=== PATIENT | female | born 1960 | race Caucasian/White ===

== ENCOUNTER 2019-07-14 08:43 | Inpatient (IN) ==
--- NOTE | 2019-07-05 19:28 | PAT Medication Instructions ---
Medication Instructions Date of Service July 05, 2019 Home Medications albuterol sulfate 2 puff INHALATION Q6H PRN aspirin [Aspirin Low Dose] 81 mg PO QAM atorvastatin 40 mg PO HS cholecalciferol (vitamin D3) [Vitamin D3] 5,000 unit PO QAM dicyclomine 10 mg PO TID PRN docusate sodium [Stool Softener] 100 mg PO BID furosemide 20 mg PO QAM gabapentin 100 mg PO TID hydroxychloroquine [Plaquenil] 200 mg PO BID insulin asp prt-insulin aspart [Novolog Mix 70-30FlexPen U-100] 10 unit SUBCUT DAILY PRN metformin 1,000 mg PO BID bdnrx-3i-goe-epa-fish oil [[place]-3 Fish Oil] 1 cap PO QAM omeprazole 40 mg PO DAILY PRN zonisamide 400 mg PO HS ASK your prescriber and surgeon hydroxychloroquine [Plaquenil] 200 mg PO BID STOP taking 2 weeks before surgery (or as soon as possible if surgery is within 2 weeks) uugmz-5b-ysv-epa-fish oil [[place]-3 Fish Oil] 1 cap PO QAM DO NOT take the morning of surgery cholecalciferol (vitamin D3) [Vitamin D3] 5,000 unit PO QAM dicyclomine 10 mg PO TID PRN docusate sodium [Stool Softener] 100 mg PO BID furosemide 20 mg PO QAM insulin asp prt-insulin aspart [Novolog Mix 70-30FlexPen U-100] 10 unit SUBCUT DAILY PRN metformin 1,000 mg PO BID Take morning of surgery With a small sip of water, OTHERWISE NOTHING TO EAT OR DRINK AFTER MIDNIGHT: albuterol sulfate 2 puff INHALATION Q6H PRN (use if needed; please bring with you to hospital day of surgery if possible) aspirin [Aspirin Low Dose] 81 mg PO QAM gabapentin 100 mg PO TID omeprazole 40 mg PO DAILY PRN (if needed) Take evening before surgery albuterol sulfate 2 puff INHALATION Q6H PRN (if needed) atorvastatin 40 mg PO HS dicyclomine 10 mg PO TID PRN (if needed) docusate sodium [Stool Softener] 100 mg PO BID gabapentin 100 mg PO TID insulin asp prt-insulin aspart [Novolog Mix 70-30FlexPen U-100] 10 unit SUBCUT DAILY PRN (if needed) metformin 1,000 mg PO BID omeprazole 40 mg PO DAILY PRN (if needed) zonisamide 400 mg PO HS Other Notes If you have any questions please call us at [phone] or [phone] or [phone] or [phone]
--- NOTE | 2019-07-06 08:17 | History & Physical Report ---
Date of Service July 06, 2019 date of surgery: 07-14-19 Assessment & Plan (1) Tricompartment osteoarthritis of right knee: Risks and benefits of procedure discussed in detail today, patient would like to proceed with a Right total knee replacement at [facility] as scheduled. will obtain medical clearance from Dr Youssef prior to surgery as well as obtain PATs at [facility]. Will place on ASA 81mg po bid x 1 month post op, f/u 2 weeks post op for routine post-operative care and x-ray, sooner if having any problems. will make arrangements for HHPT at the time of discharge. At this point in time, has failed conservative measures and would like to proceed with surgical intervention. History of Present Illness Chief Complaint: right knee pain Primary Care Provider: Jennifer Youssef Ms Mckenzie is a 59 year old female who complains of right knee pain, presents for pre-op evaluation prior to a right total knee replacement at [facility]. She presents with pain, swelling, stiffness and instability in the right knee. She states that the symptoms have been chronic non-traumatic and the symptoms occur constantly with intermittent worsening. Currently the patient states that the symptoms are moderate-severe. The pain is described as aching and sharp. The patient is experiencing pain in the entire knee joint, worse anterior and medially.She rates her current pain as 8/10. The symptoms are aggravated by first steps while awake, walking and stairs. Minna states that the symptoms are relieved by no specific activity. In addition to knee pain, she is also experiencing decreased mobility, difficulty bending and stiffness. Patient is using a cane for ambulation. Patient is taking Tylenol for pain as needed. Patient has had bilateral visco and cortisone injections in the past by her PCP. Her last visco injections were given by her PCP 07/2018. Patient has had previous therapy. Allergies Allergy/AdvReac Type Severity Reaction Status Date / Time No Known Allergies Allergy Verified 06/30/19 13:46 Home Medications Home Medications Medication Instructions Recorded Confirmed Type albuterol sulfate 2 puff INHALATION Q6H PRN 06/30/19 06/30/19 History aspirin [Aspirin Low Dose] 81 mg PO QAM 06/30/19 06/30/19 History atorvastatin 40 mg PO HS 06/30/19 06/30/19 History cholecalciferol (vitamin D3) 5,000 unit PO QAM 06/30/19 06/30/19 History [Vitamin D3] dicyclomine 10 mg PO TID PRN 06/30/19 06/30/19 History docusate sodium [Stool Softener] 100 mg PO BID 06/30/19 06/30/19 History furosemide 20 mg PO QAM 06/30/19 06/30/19 History gabapentin 100 mg PO TID 06/30/19 06/30/19 History hydroxychloroquine [Plaquenil] 200 mg PO BID 06/30/19 06/30/19 History insulin asp prt-insulin aspart 10 unit SUBCUT DAILY PRN 06/30/19 06/30/19 History [Novolog Mix 70-30FlexPen U-100] metformin 1,000 mg PO BID 06/30/19 06/30/19 History ajeeo-1x-zmw-epa-fish oil [[place]-3 1 cap PO QAM 06/30/19 06/30/19 History Fish Oil] omeprazole 40 mg PO DAILY PRN 06/30/19 06/30/19 History zonisamide 400 mg PO HS 06/30/19 06/30/19 History Past Med/Surg History Medical History Carpal tunnel syndrome of right wrist DDD (degenerative disc disease), lumbar Diabetes mellitus, type 2 Diabetic neuropathy DESCRIBES BANDS ON ANKLES AND FEET. ALSO DESCRIBES NUMBNESS AND TINGLING IN FEET. HAS DIFFICULTY WALKING; DENIES FALLING Fibromyalgia GERD (gastroesophageal reflux disease) Hiatal hernia History of Holter monitoring 2017 - [place] [facility] History of stroke 2017 - SEEN AT [facility]. INITIALLY HAD DIFFICULTY WRITINF, AFFECTED SPEECH AND SMELL. CURRENTLY RESIDUAL EFFECT IS OCCASSIONAL DIFFICULTY FINDING RIGHT WORD TO DESCRIBE SOMETHING Osteoarthritis Plantar fasciitis RIGHT AND LEFT FOOT Rheumatoid arthritis Sleep apnea USES CPAP Surgical History History of colonoscopy History of surgery LEFT HEEL Hx of cardiac cath 2005; NEGATIVE STUDY; Hx of section X1 Hx of cholecystectomy Family History Brother Family history of diabetes mellitus Grandfather (Maternal) Family history of diabetes mellitus Grandfather (Paternal) No problems noted. Uncle Family hx of colon cancer Uncle Family hx of colon cancer Social History Preferred Language: Citizen Of [place] Communication Ability: Effective Beliefs That Will Affect Care: None Current Living Situation: Family Current Living Situation Comment: DAUGHTER LIVES WITH PT Feels Safe at Home: Yes Smoking Status: Never smoker Do You Dip or Chew Tobacco: No ; Second Hand Exposure: No ; Hx Alcohol Use: No Hx Substance Use: No Review of Systems Review of Systems: All systems reviewed & are unremarkable except as noted in HPI & below Constitutional: no fever, no chills and no sweats Respiratory: no cough and no dyspnea Cardiovascular: no chest pain, no dyspnea and no orthopnea Gastrointestinal: no abdominal pain, no nausea and no vomiting Musculoskeletal: as per Subjective / HPI Physical Exam Physical Exam: Ht: 5ft 5in Wt: 133.8kg BP: 133/84 Pulse: 88 Constitutional: WD/WN, vitals as above no acute distress Respiratory: normal respiratory effort, lungs clear to auscultation no respiratory distress, no labored breathing and does not use accessory muscles Cardiovascular: RRR, no murmur, no edema Gastrointestinal (Abdomen): normal bowel sounds, soft, nontender, no hepatosplenomegaly Musculoskeletal: Right Knee: she ambulates with a limp and using a cane, there is no erythema, warmth noted, +1 effusion, greatest tenderness over the medial joint line and anterior knee joint. negative patellar apprehension , mild crepitation with motion, kody's negative, posterior drawer negative. positive mcmurrays medially, negative anterior drawer, knee stable with valgus/varus stress. no extensor lag. pain with active range of motion, AROM 0/5/110, Passive ROM 0/3/115. No pain with active/passive ROM of ankle. Lower Extremity Strength normal. Lower Extremity Neuro-vascular is normal Results & Data Diagnostic Findings right knee x-rays showing complete loss joint space medial compartment with overall varus alignment, there is also narrowing of the lateral compartment and patellofemoral joint. there is osteophyte formation, subchondral sclerosis noted, no loose bodies, no acute bony pathology. overall impression tricompartme ntal degenerative changes to the right knee.
--- NOTE | 2019-07-06 10:44 | Anesthesiology Consultation ---
Date of Service July 06, 2019 Assessment & Plan (1) Encounter for pre-operative examination: - PCP: 06/25/19: Episode epistaxis 05/2019 resolved (no definitive etiology)- advised to use humidifier HS/saline nasal spray during allergy season. Sleep apnea, COPD/asthma, diabetes "moderately well controlled." "As long as [preop testing] return as expected, and surgeon and anesthesiologist at in agreement, patient is medically cleared for R total knee replacement." - Check BSG AM DOS Chart Review Chart Review: Pending: Refer to Additional Notes / Consult section (pending preop testing (labs, EKG, CXR)) and Patient seen in Pre Admission Testing Teaching & Discussion Pre-Anesthesia Teaching/Discussion Notes: Instructed NPO after midnight before surgery,except medications with 15 cc of water. Medication instructions provided according to the PAT guidelines. History Surgery Operation Date: 07/14/19 08:45 Proposed Procedures p Right Total Knee Arthroplasty - Randy Verma DO Height/Weight Height: 5 ft 5 in Weight: 136.6 kg Allergies Allergy/AdvReac Type Severity Reaction Status Date / Time No Known Allergies Allergy Verified 06/30/19 13:46 Medications Home Medications Medication Instructions Recorded Confirmed Last Taken albuterol sulfate 2 puff INHALATION Q6H PRN 06/30/19 06/30/19 Unknown aspirin [Aspirin Low Dose] 81 mg PO QAM 06/30/19 06/30/19 Unknown atorvastatin 40 mg PO HS 06/30/19 06/30/19 Unknown cholecalciferol (vitamin D3) 5,000 unit PO QAM 06/30/19 06/30/19 Unknown [Vitamin D3] dicyclomine 10 mg PO TID PRN 06/30/19 06/30/19 Unknown docusate sodium [Stool Softener] 100 mg PO BID 06/30/19 06/30/19 Unknown furosemide 20 mg PO QAM 06/30/19 06/30/19 Unknown gabapentin 100 mg PO TID 06/30/19 06/30/19 Unknown hydroxychloroquine [Plaquenil] 200 mg PO BID 06/30/19 06/30/19 Unknown insulin asp prt-insulin aspart 10 unit SUBCUT DAILY PRN 06/30/19 06/30/19 Unknown [Novolog Mix 70-30FlexPen U-100] metformin 1,000 mg PO BID 06/30/19 06/30/19 Unknown biwno-8a-dng-epa-fish oil [[place]-3 1 cap PO QAM 06/30/19 06/30/19 Unknown Fish Oil] omeprazole 40 mg PO DAILY PRN 06/30/19 06/30/19 Unknown zonisamide 400 mg PO HS 06/30/19 06/30/19 Unknown Past Medical History Medical History Carpal tunnel syndrome of right wrist DDD (degenerative disc disease), lumbar Diabetes mellitus, type 2 IDDM Diabetic neuropathy ankles, feet- results in difficulty with ambulation Fibromyalgia GERD (gastroesophageal reflux disease) controlled Hiatal hernia History of blood transfusion s/p childbirth History of stroke 12/2017- residual difficulty with work findings Morbid obesity Osteoarthritis Plantar fasciitis B/L Pulmonary HTN RSVP cannot be properly estimated because of inadequate TR spectral doppler profile but probably greater than 60mmhg* per 12/2017 ECHO Rheumatoid arthritis Sleep apnea CPAP Exercise / Class Metabolic Activity III < 4 Walking/Shop/Light housework Past Family History Family History Brother Family history of diabetes mellitus Grandfather (Maternal) Family history of diabetes mellitus Grandfather (Paternal) No problems noted. Uncle Family hx of colon cancer Uncle Family hx of colon cancer Past Surgical History Surgical History History of colonoscopy History of surgery LEFT HEEL Hx of cardiac cath 2006= NO STENTS Hx of section X1 Hx of cholecystectomy Past Anesthesia History No Hx of Anesthesia Complications Brother: "awareness" with recent lung procedure and needed to be "put out a gain." No similar issues with other surgeries/anesthesia. History of PONV No Hx of PONV and No Hx of Motion Sickness Social History Smoking Status: Never smoker Do You Dip or Chew Tobacco: No Hx Alcohol Use: No Hx Substance Use: No Review of Systems Reflux controlled. Patient denies chest pain, shortness of breath, cough, wheezing, palpitations. Physical Exam Vital Signs VITALS BP 123/76 P 71 TEMP 97.6 SP02 96%RA RESP 18 PHYSICAL Full neck and c-spine range of motion. Full TMJ range of motion. TMD 3 finger breaths Mallampati Score 2 Dentition: full dentures upper/lower Lungs: clear throughout to auscultation Cardiac: regular rate and rhythm, no murmurs noted Spine: normal Carotid arteries: negative bruit Extremities: no edema Testing Laboratory Results 06/16/19 WBC 8.31 H/H 13.5/40.0 PLATELETS 247 SODIUM 141 POTASSIUM 3.8 CHLORIDE 107 CO2 25.1 BUN 11.9 CREATININE 0.84 GLUCOSE 176 Electrocardiogram Date: 06/16/19 SR with occasional SPVC's at 70bpm. NS TWA. Chest X-Ray Date: 06/16/19 Findings: + NAD Echocardiogram Date: 01/13/18 EF 60%. "Normal" wall motion. Mild TR. RSVP cannot be properly estimated because of inadequate TR spectral doppler profile but probably greater than 60mmhg*
--- NOTE | 2019-07-06 11:41 | XRay Report ---
XR cervical spine 2 or 3V CLINICAL HISTORY: 59 years-old Female presenting with RHEUMATOID ARTHRITIS. TECHNIQUE: Lateral views of the cervical spine in neutral, flexion, and extension positioning were ob tained. COMPARISON: None. FINDINGS: Neutral positioning of the cervical spine demonstrate straightening of normal cervical lordosis. Vert ebral bodies maintain normal height and alignment. The C7 vertebral bodies incompletely visualized li mited evaluation in this region. Intervertebral disc heights preserved. No advanced degenerative henderson ge. No radiographic evidence of fracture or subluxation. Normal predental interval. No prevertebral s oft tissue swelling. On flexion positioning, minimal kyphotic curvature centered at C4-5. No evidence of subluxation. No w idening of the predental interval. On extension positioning, normal lordosis is obtained. No subluxation. No widening of the predental i nterval. IMPRESSION: No evidence of dynamic subluxation on flexion or extension positioning. No radiographic evidence of s ignificant degenerative change or acute osseous injury. Electronically signed by: Jules Cloud M.D. 07/06/2019 11:39 AM
[2019-07-06 12:10] LABS: Partial Thromboplastin Ratio 0.9; Partial Thromboplastin Time 24.4 Seconds (21.0-31.0); Prothrombin Time 9.8 Seconds (9.0-12.0)
[2019-07-06 12:21] LABS: Appearance Urine Cloudy (Clear); Bacteria Urine Automated Negative (Negative); Bilirubin Urine Negative (Negative); Blood Urine Negative (Negative); Color Urine Yellow; Glucose Urine UA Negative (Negative); Ketones Urine Negative (Negative); Leukocyte Esterase Urine Negative (Negative); Nitrite Urine Negative (Negative); Protein Urine Negative (Negative); RBC Urine Automated 0-4 /hpf (0-4); Urobilinogen Urine Negative (Negative); pH Urine 5.5 (4.5-7.5)
[2019-07-06 13:17] LABS: Estimated Average Glucose 157 mg/dl; Hemoglobin A1C 7.1 % (4.5-5.6)
[~2019-07-14 08:43] MED LIST: BUPIVACAINE 0.5 % 5 MG/1 ML PF 10ML VIAL ONE; LIDOCAINE HCL 2% 2 ML VIAL/AMP(20MG/ML) INFIL ONE; LR 500ML BOLUS, THEN 15ML/HR IV SCH; MIDAZOLAM HCL 1 MG/ML 2ML VIAL ONE; MISSING PHYSICIAN SIGNATURE ON ORDER SCH; ONDANSETRON INJ 2 MG/ML 2 ML VIAL ONE; PROPOFOL IV EMULSION 10 MG/ML 20 ML VIAL IV ONE; ROPIVACAINE 0.5% 5 MG/ML 30 ML VIAL ONE; ROPIVACAINE 0.5% HCL/PF 150 MG, BUPIVACAINE 0.5% MPF 30 ML, EPINEPHrine 30MG/30ML (OR U... INSTIL SCH
[2019-07-14] MEDS ORDERED: fentaNYL citrate 100 MCG/2 ML VIAL IV PRN (09:17)
[2019-07-14] MEDS ORDERED: ONDANSETRON INJ 2 MG/ML 2 ML VIAL IV PRN ×2 (09:17→14:23)
[2019-07-14] MEDS ORDERED: ePHEDrine sulfate 50 MG/ML AMP IV PRN (09:17)
[2019-07-14] MEDS ORDERED: ATROPINE SULFATE 0.1 MG/ML 10ML SYR IV PRN (09:17)
[2019-07-14] MEDS ORDERED: BACITRACIN INJ 50,000 UNIT VIAL ONE (10:14)
[2019-07-14] MEDS ORDERED: ORTHO JOINT ANESTHETIC ONE (10:14)
--- NOTE | 2019-07-14 10:56 | History & Physical Bridge Note ---
Date of Service July 14, 2019 History & Physical Bridge Note I have examined the patient, reviewed the History & Physical and in the interval since the performance of the History & Physical I have noted the following changes of clinical significance: no changes noted
[2019-07-14] MEDS ORDERED: CEFAZOLIN 3000MG/72.5 ML BAG IV ONE (11:10)
[2019-07-14] MEDS ORDERED: CEFAZOLIN 3000MG 72.5 ML IV ONE (11:18)
[2019-07-14] MEDS ORDERED: ePHEDrine sulfate 50 MG/ML SYR ONE (11:58)
[2019-07-14] MEDS ORDERED: PROPOFOL IV EMULSION 10 MG/ML 20 ML VIAL IV ONE (12:06)
[2019-07-14] MEDS ORDERED: LIDOCAINE HCL 2% 2 ML VIAL/AMP(20MG/ML) INFIL ONE (12:06)
--- NOTE | 2019-07-14 12:18 | Operative Report ---
Post Operative Report Pre & Post Diagnosis Operation Date: 07/14/19 11:00 Pre-Op Diagnosis: Unilateral Primary Osteoarthritis, Right Knee Post-Op Diagnosis: Unilateral Primary Osteoarthritis, Right Knee I identified the patient and participated in the time-out.: Yes Procedure Operation Date: 07/14/19 11:00 Actual Procedures p Right Total Knee Arthroplasty(Right) utilizing [employer] journey to an en bloc total knee arthroplasty size 5 femur 4 tibia 9 polyethylene 32 oval patella- Randy Verma DO Surgeon Randy Verma DO Foreign Policy Officer Khanh RUBIO Estimated Blood Loss 5 Findings Consistent with Post-Op Diagnosis Patient is a severe stage tricompartmental joint joint disease right knee varus alignment [id number] eburnated bone marginal osteophytes more large to moderate effusion with [id number]. Specimens Bone and cartilage Drains Medium bore Hemovac Complications none Disposition Accompanied Patient To Recovery: No Disposition: Recovery Room Indications Patient presents with varices rectal milligrams which is nonresponsive conservative management physical therapy anti-inflammatories relative rest activity modification corticosteroid injections Visco supplementation the above intraoperative findings no time surgery. Description of Procedure The patient is properly identifiedAfter proper prepping and draping of the Right lower extremity anterior midline incision was made over the region of the extensor extensor mechanism after meticulous hemostasis was obtained and maintained in subcutaneous tissues a medial parapatellar incision was made The patella was subluxed lateralward the medial lateral gutter were cleaned from any hypertrophic synovitis and scar tissue of the distal femoral block was placed and the distal femoral osteotomy cut was made subsequently the chamfers anterior and posterior osteotomy cuts were made utilizing the 4-in-1 block the tibia was subsequently subluxed anteriorward medial and ateral meniscal remnants were excised in their entirety remnants of the anterior and posterior cruciate ligaments were excised in their entirety excellent exposure of the proximal tibia was obtained the tibial osteotomy guide was placed on the proximal tibial osteotomy cut was made once again the knee was irrigated with copious amounts of sterile saline solution the patella was subsequently everted lateralward thickened scar tissue around the patella was removed the patella was subsequently cut utilizing a freehand technique and was drilled prepared for final preparation and placement of patella socially flexion-extension gaps were checked and the equal and symmetric trials were placed to the appropriate femoral and tibial trials with poly-spacer being placed for equal flexion and extension gaps and full range of motion including extension to 0 and flexion to 140 the trial components after having been taken to recovery range of motion was subsequently removed meticulous hemostasis was obtained and maintained subsequently a knee block injection of joint cocktail including ropivacaine 0.5% 150 mg. Bupivacaine 0.5% epinephrine 1-200,030 mL's toradol 30 mg dexamethasone 4 mg ketamine 10 mg clonidine 100 micrograms normal saline solution 30 mg was infiltrated into the soft tissues of the posterior knee medial lateral gutters and periosteal synovium special attention was paid to protect neurovascular structures at all times subsequently trial components having been removed the knee was irrigated with sterile saline solution. debris was removed the proximal tibia was subsequently prepared and was made ready for the placement of the tibial component tibial component was also cemented and tamped into position the femoral component was subsequently placed and cemented in the position the patellar component was subsequently cemented in position because hemostasis once again obtained and maintained wound having been thoroughly irrigated with debridement and debridement lavage was performed as well as a medial parapatellar incision closed with #1 Vicryl in interrupted fashion subcutaneous was closed with #2 Vicryl skin was closed with skin clips. PA-C was necessary for prepping and drapping as well as wound closure of deep fascia Sub cutaneous tissue and skin and was necessary for the case. A sterile compressive dressing was placed patient was taken to recovery in stable condition of report dictated by Bayron I attest to the content of the Intraoperative Record and any orders documented therein. Any exceptions are noted below. I attest to the content of the Intraoperative Record and any orders documented therein. Any exceptions are noted below.
--- NOTE | 2019-07-14 13:40 | XRay Report ---
XR knee RT 2V routine CLINICAL HISTORY: Surgical Post Op COMPARISON: None. DISCUSSION: There are postsurgical changes of a total right knee arthroplasty and patellar resurfacin g. Overlying skin shivam and surgical drains are visualized. The femoral tibial components appear we ll seated. There is air within the soft tissues consistent with recent surgery IMPRESSION: Postsurgical changes of a total right knee arthroplasty. Electronically signed by: Cole Marks M.D. 07/14/2019 1:39 PM
--- NOTE | 2019-07-14 13:45 | Anesthesiology Progress Note ---
Date of Service July 14, 2019 Anesthesia Post Procedure Vital Signs Vital Signs: Temp Pulse Pulse Resp BP Pulse Ox 07/14/19 13:40 36.9 C 75 22 127/63 97 07/14/19 13:30 37.3 C 74 20 122/67 97 07/14/19 13:20 37.3 C 69 12 117/64 99 07/14/19 13:10 37.3 C 69 12 123/63 99 07/14/19 12:59 37.3 C 73 12 111/48 L 96 07/14/19 09:54 36.6 C 75 20 172/80 H 99 Pain Intensity Generalized: Pain Intensity: 0 Transfer of Care Handoff Completed per policy Notes Mental Status: alert / awake / arousable and participated in evaluation Patient Amnestic to Procedure: Yes Nausea / Vomiting: adequately controlled Pain: adequately controlled Airway Patency, RR, SpO2: stable & adequate BP & HR: stable & adequate Hydration State: stable & adequate Neuraxial Anesthesia: was administered and sensory block is resolving Anesthetic Complications: no major complications apparent and Pt Satisfied with anesthetic care
[2019-07-14] MEDS ORDERED: NALOXONE HCL 0.4 MG/1 ML VIAL/CARP IV PRN (14:23)
[2019-07-14] MEDS ORDERED: MAGNESIUM HYDROXIDE SUSP 30 ML UDC PO PRN (14:23)
[2019-07-14] MEDS ORDERED: ALBUTEROL HFA 8 GM INHALER INH PRN (14:23)
[2019-07-14] MEDS ORDERED: bisacodyL 10 MG SUPP PR PRN (14:23)
[2019-07-14] MEDS ORDERED: PANTOprazole 40 MG TAB PO PRN (14:23)
[2019-07-14] MEDS ORDERED: SODIUM CHLORIDE 0.9% 1000ML 1,000 ML IV SCH (14:23)
[2019-07-14] MEDS: MISSING PHYSICIAN SIGNATURE ON ORDER SCH ×2 (14:24→14:25)
[2019-07-14] MEDS ORDERED: PHARMACY GLYCEMIC MGMT CONSULT PRN (14:37)
[2019-07-14] MEDS ORDERED: GABAPENTIN 100 MG CAP PO ONE (15:15)
--- NOTE | 2019-07-14 15:25 | Pharmacy Report ---
Pharmacy Glycemic Short Note 2 - Date of Service July 14, 2019 - Glycemic Short BSG Results (Last 24 hours): 07/14/19 07/14/19 09:06 13:57 POC Glucose 178 H 198 H OUTPATIENT ANTIDIABETIC REGIMEN: * metformin 1000mg BID * Novolog 70/30 10 units SQ PRN (listed in med rec) ASSESSMENT: * A1c: 7.1% 07/06/19 * Will use adjusted body weight given patient BMI * No apparent steroids given in OR * Will order a one time weight based stress of one for today. Home metformin already ordered by provider to start tomorrow * Will initiate a weight based stress of 2 novolog scale. The carb coverage should be removed tomorrow morning once metformin resumed PLAN FOR INPATIENT GLYCEMIC CONTROL: * Hold outpatient oral diabetes medications today. Metformin restarted tomorrow morning * Basal insulin * Lantus 16 units SQ X 1 * Bolus insulin * NovoLog per scale ACHS or Q6hrs while NPO * Goal Range: Low 110 mg/dL - High 140 mg/dL * Correction Factor: 25 mg/dL/unit * Nutritional / Prandial insulin per carb ratio of 1 unit per 9 grams CHO consumed
[2019-07-14] MEDS ORDERED: CARBOHYDRATES FOR HYPOGLYCEMIA PO PRN (15:30)
[2019-07-14] MEDS ORDERED: GLUCOSE 10 TABS/TUBE PO PRN (15:30)
[2019-07-14] MEDS ORDERED: GLUCAGON FOR INJ 1 MG VIAL IM PRN (15:30)
[2019-07-14] MEDS ORDERED: DEXTROSE 50% 50 ML SYRINGE IV PRN (15:30)
[2019-07-14] MEDS ORDERED: LANTUS PER UNIT CHARGE SQ SCH (15:30)
[2019-07-14] MEDS ORDERED: GLUCOSE 40% GEL 15 GM TUBE PO PRN (15:30)
[2019-07-14] MEDS: INSULIN ASPART 100 UNITS/ML 3 ML PEN SC SCH ×2 (17:51→20:51)
[2019-07-14] MEDS: OXYCODONE HCL IR 5 MG TAB (IMMEDIATE RELEASE) PO PRN ×2 (17:53→21:23)
[2019-07-14] MEDS: GABAPENTIN 100 MG CAP PO SCH (20:17)
[2019-07-14] MEDS: SENNA 8.6 MG TAB PO SCH (20:17)
[2019-07-14] MEDS: CEFAZOLIN 2000MG 2,000 MG/15 ML SYR IV SCH (20:17)
[2019-07-14] MEDS: ATORVASTATIN 40 MG TAB PO SCH (20:17)
[2019-07-14] MEDS: ACETAMINOPHEN 500 MG TAB PO SCH (20:18)
[2019-07-14] MEDS: DOCUSATE SODIUM 100 MG CAP PO SCH (20:18)
[2019-07-14] MEDS: ASPIRIN 81 MG ECTAB PO SCH (20:18)
[2019-07-14] MEDS: HYDROmorphone INJ 0.5 MG/0.5 ML SYR IV PRN (23:14)
[2019-07-15] MEDS: OXYCODONE HCL IR 5 MG TAB (IMMEDIATE RELEASE) PO PRN ×5 (03:00→22:24)
[2019-07-15] MEDS: ACETAMINOPHEN 500 MG TAB PO SCH ×3 (04:50→20:37)
[2019-07-15] MEDS: CEFAZOLIN 2000MG 2,000 MG/15 ML SYR IV SCH (04:50)
[2019-07-15 05:03] LABS: Hematocrit (blood only) 29.4 % (37-47); Hemoglobin 9.9 g/dL (12.0-16.0); Mean Corpuscular Hemoglobin 28.6 pg (25-34); Mean Corpuscular Hgb Conc 33.7 g/dL (32-36); Mean Platelet Volume 9.2 fL (7.4-10.4); Platelet Count 166 K/uL (130-400); RDW Coefficient of Variation 13.4 % (11.5-14.5); RDW Standard Deviation 41.3 fL (36.4-46.3); Red Blood Count 3.46 M/uL (4.2-5.4); White Blood Count 9.77 K/uL (4.8-10.8)
[2019-07-15 05:27] LABS: BUN Creatinine Ratio 16.6 (10-20); Calcium 8.2 mg/dl (8.5-10.1); Creatinine Clr Calc Pharmacy 113.4 ml/min; Est GFR (African American) 102.1; Est GFR (Non-African American) 88.1
[2019-07-15] MEDS: FUROSEMIDE 20 MG TAB PO SCH (08:55)
[2019-07-15] MEDS: ASPIRIN 81 MG ECTAB PO SCH ×2 (08:55→20:36)
[2019-07-15] MEDS: DOCUSATE SODIUM 100 MG CAP PO SCH ×2 (08:55→20:36)
[2019-07-15] MEDS: CHOLECALCIFEROL 1,000 UNITS TAB PO SCH (08:56)
[2019-07-15] MEDS: GABAPENTIN 100 MG CAP PO SCH ×3 (08:56→20:52)
[2019-07-15] MEDS: MULTIVITAMIN TAB PO SCH (08:56)
[2019-07-15] MEDS: METFORMIN HCL 500 MG TAB PO SCH ×2 (08:56→17:50)
[2019-07-15] MEDS: INSULIN ASPART 100 UNITS/ML 3 ML PEN SC SCH ×4 (08:58→20:41)
--- NOTE | 2019-07-15 09:03 | Orthopedic Progress Note ---
Date of Service July 15, 2019 Assessment & Plan (1) Status post total right knee replacement: POD #1 s/p Right TKA pt/ot dvt proph with YOLANDA/SCD/ASA plan for d/c home with HHPE when stable, she is going to stay with her mother after discharge. Subjective POD #1 s/p Right TKA Review of Systems Constitutional: no fever, no chills and no sweats Respiratory: no cough and no dyspnea Cardiovascular: no chest pain and no dyspnea Gastrointestinal: no abdominal pain, no nausea and no vomiting Physical Exam Physical Exam: Vital Signs Temp 36.5 C 07/15/19 07:59 Pulse 72 07/15/19 07:59 Resp 18 07/15/19 07:59 BP 111/71 07/15/19 07:59 Pulse Ox 95 07/15/19 07:59 Intake & Output 07/14/07/15/07/15/19 18:59 06:59 18:59 Intake Total 1472.5 / 2649.167 1176.667 / 2649.16 7 Output Total 656 / 1406 750 / 1406 Balance 816.5 / 1243.167 426.667 / 1243.167 Weight 136.6 kg Intake: IV 872.5 / 1499.167 626.667 / 1499.167 Ancef 3000MG 7 2.5 ml @ 130 mls/ 72.5 / 72.5 hr IV PREOP ON E Rx#:[id number] Lr 1,000 ml @ 15 mls/hr IV . 800 / 800 Q24H CHILO Rx#:[id number] Nss 1000ML 1,0 00 ml @ 100 mls/ 626.667 / 626.667 hr IV .Q10H SC H Rx#:[id number] IV Perioperative 600 / 600 Oral 550 / 550 Output: Urine 500 / 900 400 / 900 Estimated Blood Loss 5 / 5 Drain Output 151 / 501 350 / 501 Right Knee Hem ovac #1 151 / 501 350 / 501 Other: # Unmeasured Voi ds 1 Constitutional: WD/WN, vitals as above no acute distress Musculoskeletal: Right Leg: NVDI, calf SNT, negative rani sign. DP palpable, able to wiggle toes/ankle movement without difficulty. dressing clean dry and intact. Results & Data Vital Signs (Past 12 Hours) Vital Signs Temp Pulse Resp BP BP Pulse Ox 07/15/19 07:59 36.5 C 72 18 111/71 95 07/15/19 02:56 36.8 C 72 16 123/71 94 07/14/19 23:21 36.5 C 75 16 117/69 93 Laboratory Results Laboratory Results WBC 9.77 K/uL (4.8-10.8) 07/15/19 04:46 RBC 3.46 M/uL (4.2-5.4) L 07/15/19 04:46 Hgb 9.9 g/dL (12.0-16.0) L 07/15/19 04:46 Hct 29.4 % (37-47) L 07/15/19 04:46 MCV 85.0 fL (80-100) 07/15/19 04:46 MCH 28.6 pg (25-34) 07/15/19 04:46 MCHC 33.7 g/dL (32-36) 07/15/19 04:46 RDW Std Deviation 41.3 fL (36.4-46.3) 07/15/19 04:46 RDW Coeff of Yue 13.4 % (11.5-14.5) 07/15/19 04:46 Plt Count 166 K/uL (130-400) 07/15/19 04:46 MPV 9.2 fL (7.4-10.4) 07/15/19 04:46 PT 9.8 Seconds (9.0-12.0) 07/06/19 11:11 INR 1.0 (0.9-1.1) 07/06/19 11:11 APTT 24.4 Seconds (21.0-31.0) 07/06/19 11:11 PTT Ratio 0.9 07/06/19 11:11 Sodium 140 mmol/L (136-145) 07/15/19 04:46 Potassium 4.0 mmol/L (3.5-5.1) 07/15/19 04:46 Chloride 107 mmol/L (98-107) 07/15/19 04:46 Carbon Dioxide 26 mmol/L (21-32) 07/15/19 04:46 Anion Gap 7.0 (3-11) 07/15/19 04:46 BUN 12 mg/dl (7-18) 07/15/19 04:46 Creatinine 0.74 mg/dl (0.6-1.2) 07/15/19 04:46 Est Cr Clr Drug Dosing 113.4 ml/min 07/15/19 04:46 Est GFR ( Amer) 102.1 07/15/19 04:46 Est GFR (Non-Af Amer) 88.1 07/15/19 04:46 BUN/Creatinine Ratio 16.6 (10-20) 07/15/19 04:46 Glucose 172 mg/dl (70-99) H 07/15/19 04:46 POC Glucose 149 (70-99) H 07/15/19 08:18 Estimat Average Glucose 157 mg/dl 07/06/19 11:11 Hemoglobin A1c 7.1 % (4.5-5.6) H 07/06/19 11:11 Calcium 8.2 mg/dl (8.5-10.1) L 07/15/19 04:46 Urine Color Yellow 07/06/19 11:11 Urine Appearance Cloudy (Clear) A 07/06/19 11:11 Urine pH 5.5 (4.5-7.5) 07/06/19 11:11 Ur Specific [place] 1.020 (1.000-1.030) 07/06/19 11:11 Urine Protein Negative (Negative) 07/06/19 11:11 Urine Glucose (UA) Negative (Negative) 07/06/19 11:11 Urine Ketones Negative (Negative) 07/06/19 11:11 Urine Blood Negative (Negative) 07/06/19 11:11 Urine Nitrite Negative (Negative) 07/06/19 11:11 Urine Bilirubin Negative (Negative) 07/06/19 11:11 Urine Urobilinogen Negative (Negative) 07/06/19 11:11 Ur Leukocyte Esterase Negative (Negative) 07/06/19 11:11 Urine WBC (Auto) 1-5 /hpf (0-5) 07/06/19 11:11 Urine RBC (Auto) 0-4 /hpf (0-4) 07/06/19 11:11 U Hyaline Cast (Auto) 1-5 /lpf (0-5) 07/06/19 11:11 U Epithel Cells (Auto) 5-10 /lpf (0-5) H 07/06/19 11:11 Urine Bacteria (Auto) Negative (Negative) 07/06/19 11:11 Urine Crystals Calcium Oxalate (None Prsent) A 07/06/19 11:11 Blood Type O Negative 07/06/19 11:11 Antibody Screen NEGATIVE 07/06/19 11:11 Diagnostic Findings XR knee RT 2V routine CLINICAL HISTORY: Surgical Post Op COMPARISON: None. DISCUSSION: There are postsurgical changes of a total right knee arthroplasty and patellar resurfacing. Overlying skin shivam and surgical drains are visualized. The femoral tibial components appear well seated. There is air within the soft tissues consistent with recent surgery IMPRESSION: Postsurgical changes of a total right knee arthroplasty.
[2019-07-15] MEDS: HYDROmorphone INJ 0.5 MG/0.5 ML SYR IV PRN ×3 (15:23→23:39)
[2019-07-15] MEDS: SENNA 8.6 MG TAB PO SCH (20:37)
[2019-07-15] MEDS: ATORVASTATIN 40 MG TAB PO SCH (20:37)
[2019-07-15] MEDS ORDERED: ZONISAMIDE PO SCH (21:00)
[2019-07-16] MEDS: OXYCODONE HCL IR 5 MG TAB (IMMEDIATE RELEASE) PO PRN ×5 (04:11→20:33)
[2019-07-16] MEDS: ACETAMINOPHEN 500 MG TAB PO SCH ×3 (05:25→20:34)
[2019-07-16] MEDS: HYDROmorphone INJ 0.5 MG/0.5 ML SYR IV PRN ×3 (07:35→19:18)
[2019-07-16] MEDS: METFORMIN HCL 500 MG TAB PO SCH ×2 (07:41→17:29)
[2019-07-16] MEDS: CHOLECALCIFEROL 1,000 UNITS TAB PO SCH (08:01)
[2019-07-16] MEDS: ASPIRIN 81 MG ECTAB PO SCH ×2 (08:02→20:34)
[2019-07-16] MEDS: GABAPENTIN 100 MG CAP PO SCH ×3 (08:02→20:34)
[2019-07-16] MEDS: MULTIVITAMIN TAB PO SCH (08:02)
[2019-07-16] MEDS: FUROSEMIDE 20 MG TAB PO SCH (08:02)
[2019-07-16] MEDS: DOCUSATE SODIUM 100 MG CAP PO SCH ×2 (08:02→20:33)
--- NOTE | 2019-07-16 08:25 | Orthopedic Progress Note ---
Date of Service July 16, 2019 Assessment & Plan (1) Status post total right knee replacement: POD #2 s/p Right TKA pt/ot dvt proph with YOLANDA/SCD/ASA plan for d/c home with HHPE when stable, she is going to stay with her mother after discharge. Recheck her progress today in PT. Subjective Pt sitting up in bed. Awake, alert. States he knee feels stiff and sore this AM. No other complaints. Denies SOB, CP, LH. Physical Exam Physical Exam: Prevena dressing intact. Mild bruising noted medially. Calves soft, NT. NV intact. Toes mobile. Results & Data Vital Signs (Past 12 Hours) Vital Signs Temp Pulse Resp BP BP Pulse Ox 07/16/19 07:20 36.5 C 16 120/65 97 07/15/19 23:25 36.6 C 76 18 121/74 99
[2019-07-16] MEDS: INSULIN ASPART 100 UNITS/ML 3 ML PEN SC SCH ×4 (09:10→21:11)
--- NOTE | 2019-07-16 10:29 | Pharmacy Report ---
Pharmacy Glycemic Short Note 2 - Date of Service July 16, 2019 - Glycemic Short BSG Results (Last 24 hours): 07/15/19 07/15/19 07/15/19 11:56 17:06 20:32 POC Glucose 132 H 137 H 171 H 07/16/19 08:14 POC Glucose 175 H OUTPATIENT ANTIDIABETIC REGIMEN: * metformin 1000mg BID * Novolog 70/30 10 units SQ PRN (listed in med rec) * A1c 7.1% ASSESSMENT: 07/17 * BSGs have ranged 132-175 over the last 24 hrs * Pt is now receiving home dose of metformin. Renal fxn assessed yesterday and patient is tolerating diet. * Fasting BSG elevated this AM however given other BSGs have been at goal, will refrain from adding basal insulin for this elevation today. Correctional insulin will be administered this AM. * Will monitor post-prandial BSG trends with no prandial insulin coverage today 07/16 * A1c: 7.1% 07/06/19 * Will use adjusted body weight given patient BMI * No apparent steroids given in OR * Will order a one time weight based stress of one for today. Home metformin already ordered by provider to start tomorrow * Will initiate a weight based stress of 2 novolog scale. The carb coverage should be removed tomorrow morning once metformin resumed PLAN FOR INPATIENT GLYCEMIC CONTROL: * Metformin 1gm PO BID with meals * Basal insulin * none * Bolus insulin * NovoLog per scale ACHS or Q6hrs while NPO * Goal Range: Low 110 mg/dL - High 140 mg/dL * Correction Factor: 25 mg/dL/unit * Nutritional / Prandial insulin: none at this time Discharge recommendations: * Given A1c results, would recommend continuation of outpt metformin regimen
[2019-07-16] MEDS: ATORVASTATIN 40 MG TAB PO SCH (20:33)
[2019-07-16] MEDS: SENNA 8.6 MG TAB PO SCH (20:33)
[2019-07-17] MEDS: HYDROmorphone INJ 0.5 MG/0.5 ML SYR IV PRN
[2019-07-17] MEDS: OXYCODONE HCL IR 5 MG TAB (IMMEDIATE RELEASE) PO PRN ×2 (05:55→11:30)
[2019-07-17] MEDS: ACETAMINOPHEN 500 MG TAB PO SCH ×2 (05:55→13:20)
[2019-07-17] MEDS: METFORMIN HCL 500 MG TAB PO SCH (07:19)
[2019-07-17] MEDS: GABAPENTIN 100 MG CAP PO SCH ×2 (08:30→13:19)
[2019-07-17] MEDS: ASPIRIN 81 MG ECTAB PO SCH (08:30)
[2019-07-17] MEDS: INSULIN ASPART 100 UNITS/ML 3 ML PEN SC SCH ×2 (08:30→13:18)
[2019-07-17] MEDS: DOCUSATE SODIUM 100 MG CAP PO SCH (08:31)
[2019-07-17] MEDS: MULTIVITAMIN TAB PO SCH (08:31)
[2019-07-17] MEDS: CHOLECALCIFEROL 1,000 UNITS TAB PO SCH (08:31)
[2019-07-17] MEDS: FUROSEMIDE 20 MG TAB PO SCH (08:31)
--- NOTE | 2019-07-17 08:47 | Orthopedic Progress Note ---
Date of Service July 17, 2019 Assessment & Plan (1) Status post total right knee replacement: POD #3 s/p Right TKA pt/ot dvt proph with YOLANDA/SCD/ASA plan for d/c home with HHPE today. she is going to stay with her mother after discharge. Subjective Pt sitting up in bed eating breakfast. No complaints currently. States she feels much better today after getting 6 hours of sleep. Looking forward to going home. Physical Exam Physical Exam: Prevena dressing C/D/I. No erythema. Calves soft, NT. NV intact. Toes mobile. Results & Data Vital Signs (Past 12 Hours) Vital Signs Temp Pulse Resp BP BP Pulse Ox 07/17/19 07:39 36.6 C 90 16 112/69 90 07/16/19 23:37 36.6 C 99 H 18 109/71 93
--- NOTE | 2019-07-20 16:38 | Discharge Summary ---
Date of Service July 20, 2019 Admission HPI Per Admitting Provider Ms Mckenzie is a 59 year old female who complains of right knee pain, presents for pre-op evaluation prior to a right total knee replacement at [facility]. She presents with pain, swelling, stiffness and instability in the right knee. She states that the symptoms have been chronic non-traumatic and the symptoms occur constantly with intermittent worsening. Currently the patient states that the symptoms are moderate-severe. The pain is described as aching and sharp. The patient is experiencing pain in the entire knee joint, worse anterior and medially.She rates her current pain as 8/10. The symptoms are aggravated by fi rst steps while awake, walking and stairs. Minna states that the symptoms are relieved by no specific activity. In addition to knee pain, she is also experiencing decreased mobility, difficulty bending and stiffness. Patient is using a cane for ambulation. Patient is taking Tylenol for pain as needed. Patient has had bilateral visco and cortisone injections in the past by her PCP. Her last visco injections were given by her PCP 07/2018. Patient has had previous therapy. Admission Exam Per Admitting Provider Physical Exam: Ht: 5ft 5in Wt: 133.8kg BP: 133/84 Pulse: 88 Constitutional: WD/WN, vitals as above no acute distress Respiratory: normal respiratory effort, lungs clear to auscultation no respiratory distress, no labored breathing and does not use accessory muscles Cardiovascular: RRR, no murmur, no edema Gastrointestinal (Abdomen): normal bowel sounds, soft, nontender, no hepatosplenomegaly Musculoskeletal: Right Knee: she ambulates with a limp and using a cane, there is no erythema, warmth noted, +1 effusion, greatest tenderness over the medial joint line and anterior knee joint. negative patellar apprehension , mild crepitation with motion, kody's negative, posterior drawer negative. positive mcmurrays medially, negative anterior drawer, knee stable with valgus/varus stress. no extensor lag. pain with active range of motion, AROM 0/5/110, Passive ROM 0/3/115. No pain with active/passive ROM of ankle. Lower Extremity Strength normal. Lower Extremity Neuro-vascular is normal Principal Diagnosis Djd Right Knee Discharge Exam Prevena dressing C/D/I. No erythema. Calves soft, NT. NV intact. Toes mobile. Results & Data Vital Signs (Past 12 Hours) Vital Signs Temp Pulse Resp BP BP Pulse Ox 07/17/19 07:39 36.6 C 90 16 112/69 90 07/16/19 23:37 36.6 C 99 H 18 109/71 93 Discharge Data Allergies Allergy/AdvReac Type Severity Reaction Status Date / Time No Known Allergies Allergy Verified 07/14/19 09:48 Consultations 07/14/19 14:23 Consult Case Management - Discharge Planning Routine Procedures Performed Operation Date: 07/14/19 11:00 Actual Procedures p Right Total Knee Arthroplasty(Right) - Randy Verma DO Ordered Studies 07/14/19 05:00 US - OR guided needle placemen Routine Hospital Course (1) Tricompartment osteoarthritis of right knee: Patient was admitted on the above-noted date and had the above-noted surgery performed which she tolerated well.On her first postoperative day, she was without complaints pain was controlled vital signs were stable and she was afebrile. Hemoglobin was 9.9. Dressings were clean, dry, intact. Calves are soft nontender. Neurovascular is intact. Toes are mobile. She was started on a physical therapy protocol continued on DVT prophylaxis and pain management. On her second postoperative day, she was having some more stiffness and soreness in the knee however she was otherwise doing well.Pravena dressing was intact. Mild bruising was noted medially. Calves are soft and nontender. Neurovascular intact. The rest of her stay was essentially uneventful. She continued to progress with her physical therapy. Pain was controlled and it was felt that she can be discharged home with home health services. Total Time Total Time Spent Total Time Spent (In Minutes): 5 Discharge Plan Discharge Items Patient Disposition: Home - Home Health Services Reason For Visit: Unilateral Primary Osteoarthritis, Right Knee Discharge Diagnosis: Right Total knee replacement Activity: Per Instructions section Weightbearing: Right weightbearing Weightbearing Comment: as tolerated with walker Non-emergency contact: Surgeon Call non-emergency contact if: your pain is not controlled, your temperature is above 101.5, your wound has increased redness and your wound has increased drainage Follow-up/Referrals: Jennifer Youssef D.O. [Primary Care Provider] - Diet: Carb Consistent or DM2 Addtl Attending Provider Instructions: ACTIVITY RECOMMENDATIONS: SELF CARE INSTRUCTIONS AFTER TOTAL KNEE REPLACEMENT A. You may need to continue a physical therapy program after discharge from the hospital. There are several options available to you. Your doctor will assist you in selecting the best one for you. 1. An out-patient facility 2 to 3 times a week for therapy or home therapy. 2. Continue working on all exercises taught to you in the hospital. Your goals should be to increase bending of your knee to 90 degrees and beyond and to fully straighten your knee. B. You may progress at your own pace from walking with a walker or crutches to a cane; then to no assistive devices. C. Make walking a part of your daily routine. Be up as much as comfortable with rest periods throughout the day. Rest with leg elevation is very important. Use the ice wrap frequently for the first 3-4 weeks. D. There are no restrictions on activities. You may ride in a car, shop, participate in fluoroscope operator and all social activities. E. Wear the long elastic stockings (YOLANDA hose) 20 hours a day for 2 weeks after surgery. They can be removed several times a day for laundering and for a bath. F. You may shower, no tub baths until cleared by your doctor. SPECIAL CARE INSTRUCTIONS: VERY IMPORTANT TO READ AND REVIEW A. There are a few signs you need to watch for after you are home. Call [facility] if you notice any of the followin. Increased severe knee pain. Some pain is expected especially when you exercise. 2. Increased swelling in your leg or knee; pain or swelling of the calf muscle in either lower leg. 3. Any fluid drainage from the incision. 4. Shortness of breath or chest pain. B. Please call [facility] at if you have any concerns or questions about your operation or recovery. The doctor or his nurse will return your call promptly. C. You must take antibiotics before dental work, bladder, bowel or other surgery. Your doctor will provide you with a permanent care to carry describing this precaution. IMPORTANT: * REMEMBER TO TAKE ASPIRIN, 81 MG, TWICE DAILY FOR 4 WEEKS UNLESS OTHERWISE DI RECTED. THIS IS YOUR BLOOD THINNER. * HIGH RISK PATIENTS MAY BE PRESCRIBED A STRONGER BLOOD THINNER. THIS WILL BE PROVIDED AT DISCHARGE. * CALL IF INCREASED PAIN, REDNESS, DRAINAGE OR FEVER GREATER THAT 101. * WEAR YOLANDA HOSE 20 HOURS PER DAY FOR 2 WEEKS. * Prevena- This is a large suction dressing covering your incision. This will help pull any excess drainage from the wound and allow your incision to heal properly. You may shower with this if you can keep the unit outside of the shower. If any bleeding or leakage is noted please call your doctor's office. This will remain on your incision for 7 days and then should be removed. This can be done yourself or by the home nursing staff if applicable. The entire unit is disposable once removed. Once removed, keep incision clean and dry. If redness or drainage is noted, please call your surgeon. IF INCISION IS LEAKING THROUGH DRESSING, CALL THE OFFICE . FOLLOW UP VISIT: If appointment is not already scheduled: Please call [facility] to make a follow-up appointment for 2 weeks after your surgery at . Pending Studies at Discharge: No Stand-Alone Forms: My [facility] Medications and DC Order Prescriptions: New aspirin [Ecotrin Low Strength] 81 mg Tablet,Delayed Release (Dr/Ec) 81 mg PO BID 30 Days Qty: 60 RF: 0 acetaminophen [Tylenol Extra Strength] 500 mg Tablet 1,000 mg PO Q8 14 Days Qty: 84 RF: 0 oxycodone 5 mg Tablet 5 - 10 mg PO .q6-8h PRN (Reason: pain) Qty: 30 RF: 0 cefadroxil 500 mg capsule 500 mg PO BID Qty: 28 RF: 1 Continued atorvastatin 40 mg Tablet 40 mg PO HS RF: 0 omeprazole 40 mg Capsule,Delayed Release(Dr/Ec) 40 mg PO DAILY PRN (Reason: GERD) RF: 0 zonisamide 100 mg Capsule 400 mg PO HS RF: 0 metformin 1,000 mg Tablet 1,000 mg PO BID RF: 0 furosemide 20 mg Tablet 20 mg PO QAM RF: 0 gabapentin 100 mg Capsule 100 mg PO TID RF: 0 dicyclomine 10 mg Capsule 10 mg PO TID PRN (Reason: STOMACH ISSUES) RF: 0 cholecalciferol (vitamin D3) [Vitamin D3] 5,000 unit Tablet 5,000 unit PO QAM RF: 0 docusate sodium [Stool Softener] 100 mg Capsule 100 mg PO BID RF: 0 Novolog Mix 70-30FlexPen U-100 100 unit/mL (70-30) Insulin Pen 10 unit SUBCUT DAILY PRN (Reason: SLIDING SCALE) RF: 0 albuterol sulfate 90 mcg/actuation Hfa Aerosol Inhaler 2 puff INHALATION Q6H PRN (Reason: WHEEZING/ SHORTNESS OF BREATH) RF: 0 Discontinued aspirin [Aspirin Low Dose] 81 mg Tablet,Delayed Release (Dr/Ec) 81 mg PO QAM RF: 0 hydroxychloroquine [Plaquenil] 200 mg Tablet 200 mg PO BID RF: 0 Odum-3 Fish Oil 300-1,000 mg Capsule 1 cap PO QAM RF: 0 Discharge Orders: Discharge Order (Routine); Ordered 07/17/19 Ordered By: Khanh Garcia/Other Patient Handouts: Surgery Prevent DVT After, Replacement Total Knee Dc Admission Data Admit Date/Time: 07/14/19 13:10 Attending Provider: Radny Verma Admit Provider: Randy Verma Primary Care Provider: Jennifer Youssef Other Interventions: Discharge Summary Assessment (RN) Last Done: 07/17/19 13:39 DC Date/Time DO NOT enter until pt leaves facility: 07/17/19 14:33
== END 2019-07-17 14:33 | disposition home health service (06) | DRG 470 ==
LOC: ASU 08:43 → 3E 13:10

== ENCOUNTER 2020-03-30 06:10 | Inpatient (IN) ==
--- NOTE | 2020-03-05 14:35 | PAT Medication Instructions ---
Medication Instructions Date of Service March 05, 2020 Home Medications albuterol sulfate 2 puff INHALATION Q6H PRN atorvastatin 40 mg PO HS cholecalciferol (vitamin D3) [Vitamin D3] 5,000 unit PO QAM dicyclomine 10 mg PO TID PRN docusate sodium [Stool Softener] 100 mg PO BID furosemide 20 mg PO QAM gabapentin 100 mg PO TID insulin asp prt-insulin aspart [Novolog Mix 70-30FlexPen U-100] 10 unit SUBCUT DAILY PRN metformin 1,000 mg PO BID omeprazole 40 mg PO DAILY PRN zonisamide 400 mg PO HS acetaminophen [Tylenol Extra Strength] 500 mg PO BID PRN aspirin [Aspir-81] 81 mg PO QAM turmeric root extract 500 mg PO QAM STOP taking 2 weeks before surgery turmeric root extract 500 mg PO QAM DO NOT take the morning of surgery metformin 1,000 mg PO BID docusate sodium [Stool Softener] 100 mg PO BID furosemide 20 mg PO QAM dicyclomine 10 mg PO TID PRN cholecalciferol (vitamin D3) [Vitamin D3] 5,000 unit PO QAM Take morning of surgery With a small sip of water, OTHERWISE NOTHING TO EAT OR DRINK AFTER MIDNIGHT: acetaminophen [Tylenol Extra Strength] 500 mg PO BID PRN (okay to take up to 4 hours prior to surgery if needed) aspirin [Aspir-81] 81 mg PO QAM omeprazole 40 mg PO DAILY PRN gabapentin 100 mg PO TID albuterol sulfate 2 puff INHALATION Q6H PRN (use if needed; please bring with you to hospital day of surgery if possible) Take evening before surgery acetaminophen [Tylenol Extra Strength] 500 mg PO BID PRN (if needed) zonisamide 400 mg PO HS gabapentin 100 mg PO TID insulin asp prt-insulin aspart [Novolog Mix 70-30FlexPen U-100] 10 unit SUBCUT D AILY PRN metformin 1,000 mg PO BID docusate sodium [Stool Softener] 100 mg PO BID dicyclomine 10 mg PO TID PRN albuterol sulfate 2 puff INHALATION Q6H PRN (if needed) atorvastatin 40 mg PO HS Insulin Dependent Diabetic Patients * Test your blood sugar the morning of surgery * If Blood Sugar is GREATER THAN 150, take HALF of your regular dose of: insulin asp prt-insulin aspart [Novolog Mix 70-30FlexPen U-100] (5 units) * If Blood Sugar is LESS THAN 150, DO NOT TAKE ANY: insulin asp prt-insulin aspart [Novolog Mix 70-30FlexPen U-100] * Other Notes If you have any questions please call us at [phone] or [phone] or [phone] or [phone]
--- NOTE | 2020-03-07 08:52 | History & Physical Report ---
Date of Service March 07, 2020 Date of surgery: 03-30-20 Assessment & Plan (1) Arthritis of knee, left: Risks and benefits of procedure discussed in detail today, patient would like to proceed with a Left total knee replacement at [facility] as scheduled. will obtain medical clearance from Dr Youssef prior to surgery as well as obtain PATs at [facility]. Will place on ASA 81mg po bid x 1 month post op, f/u 2 weeks post op for routine post-operative care and x-ray, sooner if having any problems. will make arrangements for HHPT at the time of discharge. At this point in time, has failed conservative measures and would like to proceed with surgical intervention. History of Present Illness Chief Complaint: left knee pain Primary Care Provider: Jennifer Youssef Ms Mckenzie is a 60 year old female who is here for a follow up of left knee pain, presents for pre-op evaluation prior to a left total knee replacement at [facility]. she had her right knee replaced in June 2019 and has recovered well. She presents with pain and stiffness in her left knee. She states that the symptoms have been chronic non-traumatic and that her symptoms are constant. Currently the patient states that the symptoms are moderate-severe. The pain is described as aching and throbbing. The symptoms are aggravated by ascending stairs, daily activities, first steps while awake, kneeling, repetitive activities, sleeping on the affected side, squatting, standing, walking and weight bearing. In addition to left knee pain the patient is also experiencing limping, nighttime awakening, pain, instability, stiffness, tenderness and weakness. she has had prior cortisone injections without relief. Allergies Allergy/AdvReac Type Severity Reaction Status Date / Time No Known Allergies Allergy Verified 03/02/20 12:19 Home Medications Home Medications Medication Instructions Recorded Confirmed Type albuterol sulfate 2 puff INHALATION Q6H PRN 06/30/19 03/02/20 History atorvastatin 40 mg PO HS 06/30/19 03/02/20 History cholecalciferol (vitamin D3) 5,000 unit PO QAM 06/30/19 03/02/20 History [Vitamin D3] dicyclomine 10 mg PO TID PRN 06/30/19 03/02/20 History docusate sodium [Stool Softener] 100 mg PO BID 06/30/19 03/02/20 History furosemide 20 mg PO QAM 06/30/19 03/02/20 History gabapentin 100 mg PO TID 06/30/19 03/02/20 History insulin asp prt-insulin aspart 10 unit SUBCUT DAILY PRN 06/30/19 03/02/20 History [Novolog Mix 70-30FlexPen U-100] metformin 1,000 mg PO BID 06/30/19 03/02/20 History omeprazole 40 mg PO DAILY PRN 06/30/19 03/02/20 History zonisamide 400 mg PO HS 06/30/19 03/02/20 History acetaminophen [Tylenol Extra 500 mg PO BID PRN 03/02/20 03/02/20 History Strength] aspirin [Aspir-81] 81 mg PO QAM 03/02/20 03/02/20 History turmeric root extract 500 mg PO QAM 03/02/20 03/02/20 History Past Med/Surg History Medical History Asthma Carpal tunnel syndrome of right wrist DDD (degenerative disc disease), lumbar Diabetes mellitus, type 2 IDDM Diabetic neuropathy ankles, feet- results in difficulty with ambulation Fibromyalgia GERD (gastroesophageal reflux disease) DIET MANAGED Heart palpitations NO PRODUCTION TECH Hiatal hernia History of blood transfusion s/p childbirth History of stroke 12/2017-SPONTANEOUSLY AT HOME-RESIDUAL EFFECTS MEMORY ISSUES/TAKES SEIZURE MED SINCE-NO SEIZURES- NO REPEAT EVENTS Morbid obesity Osteoarthritis Plantar fasciitis B/L Pulmonary HTN RSVP cannot be properly estimated because of inadequate TR spectral doppler profile but probably greater than 60mmhg* per 12/2017 ECHO Rheumatoid arthritis Sleep apnea CPAP Surgical History History of colonoscopy History of surgery LEFT HEEL History of total knee replacement RIGHT Hx of cardiac cath 2006= NO STENTS Hx of section X1 Hx of cholecystectomy Family History Brother Family history of diabetes mellitus Grandfather (Maternal) Family history of diabetes mellitus Grandfather (Paternal) No problems noted. 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 Beliefs That Will Affect Care: None Current Living Situation: Family Current Living Situation Comment: DAUGHTER LIVES WITH PT Other Information That Helps Us Care for You: No Feels Safe at Home: Yes Safety Concerns: Feels Safe At This Time Smoking Status: Never smoker Do You Dip or Chew Tobacco: No ; Second Hand Exposure: Yes (FIRST ) ; Hx Alcohol Use: No Hx Substance Use: No Review of Systems Review of Systems: All systems reviewed & are unremarkable except as noted in HPI & below Constitutional: no fever, no chills and no sweats Respiratory: no cough and no dyspnea Cardiovascular: no chest pain, no dyspnea and no orthopnea Gastrointestinal: no abdominal pain, no nausea and no vomiting Musculoskeletal: as per Subjective / HPI Physical Exam Physical Exam: Ht: 5ft 5in Wt: 83.9kg BP: 138/78 Pulse: 68 Constitutional: WD/WN, vitals as above no acute distress Respiratory: normal respiratory effort, lungs clear to auscultation no respiratory distress, no labored breathing and does not use accessory muscles Cardiovascular: RRR, no murmur, no edema Gastrointestinal (Abdomen): normal bowel sounds, soft, nontender, no hepatosplenomegaly Musculoskeletal: Knee: + knee abnormal to inspection (Left knee--), + deformity (varus deformity), + effusion (+1 effusion), + limited ROM of knee (ROM 0/3/110), + knee ROM with crepitation, + joint line tenderness (medial joint line) and + Tika's sign positive; no skin erythema, no ecchymosis, no valgus laxity, no varus laxity, anterior drawer test negative, Mary Lou's sign negative and pivot shift test negative Results & Data Results & Data ([facility]) Diagnostic Findings Left Knee X-ray 05/29/20 confirms advanced degenerative changes to the left knee, greatest medial compartments and patellofemoral joint, showing joint space narrowing, osteophyte formation and subchondral sclerosis. no acute bony pathology noted. varus alignment.
--- NOTE | 2020-03-07 12:09 | Anesthesiology Consultation ---
Date of Service March 07, 2020 Assessment & Plan (1) Encounter for pre-operative examination: Chart Review Chart Review: Acceptable Risk for Surgery (pending UA (doing as outpatient) and Covid test three days prior to surgery ) and Patient seen in Pre Admission Testing - Check BSG AM DOS Awaiting UA (Pt unable to give urine sample at [facility] appt- given supplies and order and will take to lab closer to home in [facility] as outpatient) Educated patient to follow up with surgeon for Covid testing three days prior to surgery. Did educate patient that herself and household members should self quarantine and social distance from time of test to surgery. Teaching & Discussion Pre-Anesthesia Teaching/Discussion Notes: Instructed NPO after midnight before surgery,except medications with 15 cc of water. Medication instructions provided according to the [facility] guidelines. History Surgery Operation Date: 03/30/20 07:00 Proposed Procedures p Left Total Knee Arthroplasty - Randy Verma DO Height/Weight Height: 5 ft 5 in Weight: 135.2 kg Allergies Allergy/AdvReac Type Severity Reaction Status Date / Time No Known Allergies Allergy Verified 03/02/20 12:19 Medications Home Medications Medication Instructions Recorded Confirmed Last Taken albuterol sulfate 2 puff INHALATION Q6H PRN 06/30/19 03/02/20 1 Week Ago ~07/07/19 atorvastatin 40 mg PO HS 06/30/19 03/02/20 07/13/19 23:00 cholecalciferol (vitamin D3) 5,000 unit PO QAM 06/30/19 03/02/20 3 Days Ago [Vitamin D3] ~07/11/19 dicyclomine 10 mg PO TID PRN 06/30/19 03/02/20 07/12/19 18:00 docusate sodium [Stool Softener] 100 mg PO BID 06/30/19 03/02/20 07/13/19 16:00 furosemide 20 mg PO QAM 06/30/19 03/02/20 07/13/19 11:00 gabapentin 100 mg PO TID 06/30/19 03/02/20 07/14/19 08:15 insulin asp prt-insulin aspart 10 unit SUBCUT DAILY PRN 06/30/19 03/02/20 07/13/19 11:00 [Novolog Mix 70-30FlexPen U-100] metformin 1,000 mg PO BID 06/30/19 03/02/20 07/13/19 11:00 omeprazole 40 mg PO DAILY PRN 06/30/19 03/02/20 2 Weeks Ago ~06/30/19 zonisamide 400 mg PO HS 06/30/19 03/02/20 07/13/19 23:00 acetaminophen [Tylenol Extra 500 mg PO BID PRN 03/02/20 03/02/20 Unknown Strength] aspirin [Aspir-81] 81 mg PO QAM 03/02/20 03/02/20 Unknown turmeric root extract 500 mg PO QAM 03/02/20 03/02/20 Unknown Past Medical History Medical History (Updated 03/08/20 @ 08:43 by Carly Mathis PA-C) Asthma Well controlled and stable Carpal tunnel syndrome of right wrist Intermittent numbness and tingling DDD (degenerative disc disease), lumbar Diabetes mellitus, type 2 IDDM- Stable and controlled Diabetic neuropathy ankles, feet- results in difficulty with ambulation Fibromyalgia GERD (gastroesophageal reflux disease) DIET MANAGED Hiatal hernia History of blood transfusion s/p childbirth History of stroke 12/2017-SPONTANEOUSLY AT HOME-RESIDUAL EFFECTS MEMORY ISSUES/TAKES SEIZURE MED SINCE-NO SEIZURES- NO REPEAT EVENTS- FOLLOWS WITH NEURO Q 6 MONTHS Lymphedema Bilateral LEs Morbid obesity Osteoarthritis Plantar fasciitis B/L Pulmonary HTN RSVP cannot be properly estimated because of inadequate TR spectral doppler profile but probably greater than 60mmhg* per 12/2017 ECHO Rheumatoid arthritis Was following with rheum - no longer taking Plaquenil - no recent follow up Sleep apnea CPAP Exercise / Class Metabolic Activity III < 4 Walking/Shop/Light housework (one flight of stairs- SOB and has to go slow due to knee pain- no chest pain ) Past Family History Family History Brother Family history of diabetes mellitus Grandfather (Maternal) Family history of diabetes mellitus Grandfather (Paternal) No problems noted. Uncle Family hx of colon cancer Uncle Family hx of colon cancer Past Surgical History Surgical History History of colonoscopy History of surgery LEFT HEEL History of total knee replacement RIGHT Hx of cardiac cath 2005= NO STENTS Hx of section X1 Hx of cholecystectomy Past Anesthesia History No Hx of Anesthesia Complications and No Family Hx of Anesthesia Complications History of PONV No Hx of PONV and No Hx of Motion Sickness Social History Smoking Status: Never smoker Do You Dip or Chew Tobacco: No Hx Alcohol Use: No Hx Substance Use: No Review of Systems Patient denies chest pain, shortness of breath, dyspnea on exertion, cough, wheezing, palpitations. No hx of seizures, RI. No hx of blood clots Physical Exam Vital Signs VITALS BP 139/76 P 67 TEMP 98.1 SP02 95% RESP 16 Constitutional + morbidly obese; no acute distress ENMT Thyromental Distance: > or= 3.5 Finger Breadths (3.5) Mallampati Class: II Full dentures top and bottom Neck neck extension not limited Respiratory normal respiratory effort; no respiratory distress Auscultation: lungs clear to auscultation bilaterally; no wheezes Cardiovascular Rate/Rhythm: regular rate and regular rhythm Heart Sounds: no murmur Vessels: no carotid bruit Musculoskeletal Spine: no pain with cervical ROM Neurologic moves all extremities Psychiatric Orientation: alert Testing Laboratory Results 03/07/20 12:28 03/07/20 12:28 PT 10.4 Seconds (9.0-12.0) 03/07/20 12: INR 1.0 (0.9-1.1) 03/07/20 12:28 APTT 25.2 Seconds (21.0-31.0) 03/07/20 12:28 Hemoglobin A1c 7.2 % (4.5-5.6) H 03/07/20 12:28 Blood Type O Negative 03/07/20 12:28 Antibody Screen NEGATIVE 03/07/20 12:28 Electrocardiogram Date: 06/16/19 SR with occ supraventricular premature complexes at 70 bpm. Non specific T wave abnormality. Chest X-Ray Date: 06/16/19 Findings: + NAD Echocardiogram Date: 01/13/18 EF 60%. "Normal" wall motion. Mild TR. RSVP cannot be properly estimated because of inadequate TR spectral doppler profile but probably greater than 60mmhg* Cervical Spine Date: 07/06/19 No evidence of dynamic subluxation on flexion or extension positioning. No radiographic evidence of significant degenerative change or acute osseous injury. On flexion positioning, minimal kyphotic curvature centered at C4-5. On extension positioning, normal lordosis is obtained.
[2020-03-07 13:37] LABS: Basophils # (auto) 0.04 K/uL (0-0.2); Basophils % (auto) 0.5 %; Eosinophils # (auto) 0.19 K/uL (0-0.5); Eosinophils % (auto) 2.2 %; Hematocrit (blood only) 36.3 % (37-47); Hemoglobin 11.6 g/dL (12.0-16.0); Immature Granulocytes # (auto) 0.01 K/uL (0.00-0.02); Immature Granulocytes % (auto) 0.1 %; Lymphocytes # (auto) 2.76 K/uL (1.2-3.4); Lymphocytes % (auto) 32.5 %; Mean Corpuscular Hemoglobin 28.1 pg (25-34); Mean Corpuscular Volume 87.9 fL (80-100); Mean Platelet Volume 10.2 fL (7.4-10.4); Monocytes # (auto) 0.39 K/uL (0.11-0.59); Monocytes % (auto) 4.6 %; Neutrophils # (auto) 5.11 K/uL (1.4-6.5); Neutrophils % (auto) 60.1 %; Platelet Count 247 K/uL (130-400); RDW Standard Deviation 44.9 fL (36.4-46.3); Red Blood Count 4.13 M/uL (4.2-5.4)
[2020-03-07 13:48] LABS: Partial Thromboplastin Ratio 0.9; Partial Thromboplastin Time 25.2 Seconds (21.0-31.0); Prothrombin Time 10.4 Seconds (9.0-12.0)
[2020-03-07 14:07] LABS: Estimated Average Glucose 160 mg/dl; Hemoglobin A1C 7.2 % (4.5-5.6)
[2020-03-07 14:11] LABS: Albumin Level 3.8 gm/dl (3.4-5.0); BUN Creatinine Ratio 12.1 (10-20); Calcium 8.9 mg/dl (8.5-10.1); Creatinine Clr Calc Pharmacy 114.4 ml/min; Est GFR (African American) 104.8; Est GFR (Non-African American) 90.4; Potassium 4.1 mmol/L (3.5-5.1)
[~2020-03-30 06:10] MED LIST changes: +ACETAMINOPHEN 500 MG TAB PO SCH; -BUPIVACAINE 0.5 % 5 MG/1 ML PF 10ML VIAL ONE; +CEFAZOLIN 3000MG 72.5 ML IV SCH; +CeleBREX 200 MG CAP PO SCH; +FAMOTIDINE 20 MG TAB PO SCH; +GABAPENTIN 600 MG DOSE PO SCH; -LIDOCAINE HCL 2% 2 ML VIAL/AMP(20MG/ML) INFIL ONE; +LR 15ML/HR IV SCH; -LR 500ML BOLUS, THEN 15ML/HR IV SCH; +METOCLOPRAMIDE HCL 10 MG TABLET PO SCH; -MIDAZOLAM HCL 1 MG/ML 2ML VIAL ONE; -MISSING PHYSICIAN SIGNATURE ON ORDER SCH; -ONDANSETRON INJ 2 MG/ML 2 ML VIAL ONE; +OXYCODONE HCL 10 MG TABCR (OXYCONTIN) PO SCH; -PROPOFOL IV EMULSION 10 MG/ML 20 ML VIAL IV ONE; -ROPIVACAINE 0.5% 5 MG/ML 30 ML VIAL ONE; +TRANEXAMIC ACID 1,000 MG **IV Intra-op IV SCH; +TRANEXAMIC ACID 1,000 MG **IV Pre-op IV SCH
[2020-03-30] MEDS ORDERED: ROPIVACAINE 0.5% 5 MG/ML 30 ML VIAL ONE (06:35)
[2020-03-30] MEDS ORDERED: EPINEPHrine INJ 1 MG/ML AMP ONE (06:35)
[2020-03-30] MEDS ORDERED: BUPIVACAINE 0.5 % 5 MG/1 ML PF 10ML VIAL ONE (06:35)
[2020-03-30] MEDS ORDERED: ORTHO JOINT ANESTHETIC ONE (07:06)
[2020-03-30] MEDS ORDERED: BACITRACIN INJ 50,000 UNIT VIAL ONE (07:06)
[2020-03-30] MEDS ORDERED: PROPOFOL IV EMULSION 10 MG/ML 20 ML VIAL IV ONE ×4 (07:08→09:12)
[2020-03-30] MEDS ORDERED: MIDAZOLAM HCL 1 MG/ML 2ML VIAL ONE ×3 (07:08→08:43)
[2020-03-30] MEDS ORDERED: LIDOCAINE HCL 2% 2 ML VIAL/AMP(20MG/ML) INFIL ONE (07:08)
--- NOTE | 2020-03-30 07:10 | History & Physical Bridge Note ---
Date of Service March 30, 2020 History & Physical Bridge Note I have examined the patient, reviewed the History & Physical and in the interval since the performance of the History & Physical I have noted the following changes of clinical significance: no changes noted
[2020-03-30] MEDS ORDERED: HYDROmorphone INJ 1 MG/ML SYRINGE IV PRN (07:19)
[2020-03-30] MEDS ORDERED: fentaNYL citrate 100 MCG/2 ML VIAL IV PRN (07:19)
[2020-03-30] MEDS ORDERED: ATROPINE SULFATE 0.1 MG/ML 10ML SYR IV PRN (07:19)
[2020-03-30] MEDS ORDERED: ONDANSETRON INJ 2 MG/ML 2 ML VIAL IV PRN ×2 (07:19→11:37)
[2020-03-30] MEDS ORDERED: MEPERIDINE HCL 25 MG/ML CARP/VIAL IV PRN (07:19)
[2020-03-30] MEDS ORDERED: ePHEDrine sulfate 50 MG/ML AMP IV PRN (07:19)
[2020-03-30] MEDS ORDERED: PHENYLEPHRINE 100MCG/ML 5ML SYR IV PRN (07:19)
[2020-03-30] MEDS ORDERED: LABETALOL HCL IV 5 MG/ML 20ML IV PRN (07:19)
[2020-03-30] MEDS ORDERED: ONDANSETRON INJ 2 MG/ML 2 ML VIAL ONE (08:27)
[2020-03-30] MEDS ORDERED: PHENYLEPHRINE 100MCG/ML 5ML SYR ONE (08:27)
[2020-03-30] MEDS ORDERED: GLYCOPYRROLATE 0.2 MG/ML VIAL ONE (08:43)
[2020-03-30] MEDS ORDERED: PHENYLEPHRINE HCL 10 MG/ML VIAL ONE (09:04)
--- NOTE | 2020-03-30 09:35 | Operative Report ---
Post Operative Report Pre & Post Diagnosis Operation Date: 03/30/20 08:20 Pre-Op Diagnosis: Left Knee Osteoarthritis Post-Op Diagnosis: Left Knee Osteoarthritis I identified the patient and participated in the time-out.: Yes Procedure Operation Date: 03/30/20 08:20 Actual Procedures p Left Total Knee Arthroplasty(Left)Utilizing [employer] journey to non- block total knee arthroplasty size 5 femur 4 tibia 9 polyethylene 29 oval patella - Randy Verma DO Surgeon Randy Verma DO Dimensional Inspector JOANNE Yeung Estimated Blood Loss 10 Findings Consistent with Post-Op Diagnosis Patient presents with severe end-stage tricompartmental degenerative joint disease left knee no response to conservative management patient failed attempts at the conservative management patient did have evidence of subchondral cystic changes marginal osteophytes valgus alignment severe end-stage DJD with eburnated bone Specimens Bone and cartilage Drains Medium bore Hemovac Anesthesia Type MAC Spinal Regional Complications none Disposition Accompanied Patient To Recovery: No Disposition: Recovery Room Indications Patient presents after failed attempted conservative management clinic physical therapy anti-inflammatories relative rest activity modification weight loss attempts patient is previous undergone right total knee arthroplasty succe ssfully presents here for left total knee arthroplasty Description of Procedure After proper prepping and draping of the left lower extremity anterior midline incision was made over the region of the extensor extensor mechanism after meticulous hemostasis was obtained and maintained in subcutaneous tissues a medial parapatellar incision was made The patella was subluxed lateralward the medial lateral gutter were cleaned from any hypertrophic synovitis and scar tissue of the distal femoral block was placed and the distal femoral osteotomy cut was made subsequently the chamfers anterior and posterior osteotomy cuts were made utilizing the 4-in-1 block the tibia was subsequently subluxed anteriorward medial and ateral meniscal remnants were excised in their entirety remnants of the anterior and posterior cruciate ligaments were excised in their entirety excellent exposure of the proximal tibia was obtained the tibial osteotomy guide was placed on the proximal tibial osteotomy cut was made once again the knee was irrigated with copious amounts of sterile saline solution the patella was subsequently everted lateralward thickened scar tissue around the patella was removed the patella was subsequently cut utilizing a freehand technique and was drilled prepared for final preparation and placement of patella socially flexion-extension gaps were checked and the equal and symmetric trials were placed to the appropriate femoral and tibial trials with poly-spacer being placed for equal flexion and extension gaps and full range of motion including extension to 0 and flexion to 140 the trial components after having been taken to recovery range of motion was subsequently removed meticulous hemostasis was obtained and maintained subsequently a knee block injection of joint cocktail including ropivacaine 0.5% 150 mg. Bupivacaine 0.5% epinephrine 1-200,030 mL's toradol 30 mg dexamethasone 4 mg ketamine 10 mg clonidine 100 micrograms normal saline solution 30 mg was infiltrated into the soft tissues of the posterior knee medial lateral gutters and periosteal synovium special attention was paid to protect neurovascular structures at all times subsequently trial components having been removed the knee was irrigated with sterile saline solution. debris was removed the proximal tibia was subsequently prepared and was made ready for the placement of the tibial component tibial component was also cemented and tamped into position the femoral component was subsequently placed and cemented in the position the patellar component was subsequently cemented in position because hemostasis once again obtained and maintained wound having been thoroughly irrigated with debridement and debridement lavage was performed as well as a medial parapatellar incision closed with #1 Vicryl in interrupted fashion subcutaneous was closed with #2 Vicryl skin was closed with skin clips. PA-C was necessary for prepping and drapping as well as wound closure of deep fascia Sub cutaneous tissue and skin and was necessary for the case. A sterile compressive dressing was placed patient was taken to recovery in stable condition of report dictated by Bayron I attest to the content of the Intraoperative Record and any orders documented therein. Any exceptions are noted below. I attest to the content of the Intraoperative Record and any orders documented therein. Any exceptions are noted below.
--- NOTE | 2020-03-30 11:01 | Anesthesiology Progress Note ---
Date of Service March 30, 2020 Anesthesia Post Procedure Vital Signs Vital Signs: Temp Pulse Pulse Resp BP Pulse Ox 03/30/20 10:50 36.4 C L 66 15 108/50 L 100 03/30/20 10:40 66 16 104/48 L 100 03/30/20 10:30 65 15 114/45 L 100 03/30/20 10:22 36.6 C 78 16 86/58 L 95 03/30/20 07:56 70 18 140/69 97 03/30/20 06:58 37.2 C 76 18 142/83 H 96 Transfer of Care Handoff Completed per policy Notes Mental Status: alert / awake / arousable Patient Amnestic to Procedure: Yes Nausea / Vomiting: adequately controlled Pain: adequately controlled Airway Patency, RR, SpO2: stable & adequate BP & HR: stable & adequate Hydration State: stable & adequate Neuraxial Anesthesia: was administered and sensory block is resolving Anesthetic Complications: no major complications apparent and Pt Satisfied with anesthetic care
--- NOTE | 2020-03-30 11:14 | XRay Report ---
XR knee LT 1 or 2V routine CLINICAL HISTORY: Postoperative evaluation. COMPARISON: None FINDINGS: Alignment of the total left knee arthroplasty is anatomic. There is no periprosthetic frac ture or unexpected radiopaque foreign body. There are skin shivam. IMPRESSION: Expected findings following total left knee arthroplasty. ACT 112: Negative or not required by law. Electronically signed by: Carlton Carlson M.D. 03/30/2020 11:13 AM
[2020-03-30] MEDS ORDERED: ALBUTEROL HFA 8 GM INHALER INH PRN (11:37)
[2020-03-30] MEDS ORDERED: NALOXONE HCL 0.4 MG/1 ML VIAL/CARP IV PRN (11:37)
[2020-03-30] MEDS ORDERED: bisacodyL 10 MG SUPP PR PRN (11:37)
[2020-03-30] MEDS ORDERED: MAGNESIUM HYDROXIDE SUSP 30 ML UDC PO PRN (11:37)
[2020-03-30] MEDS ORDERED: PHARMACY GLYCEMIC MGMT CONSULT PRN (11:55)
--- NOTE | 2020-03-30 12:04 | Pharmacy Report ---
Pharmacy Glycemic Short Note 2 - Date of Service March 30, 2020 - Glycemic Short BSG Results (Last 24 hours): 03/30/20 03/30/20 06:34 10:25 POC Glucose 174 H 178 H OUTPATIENT ANTIDIABETIC REGIMEN: * Metformin 1gm PO BID * Novolog PRN * HbA1c: 7.2% (03/07/20) ASSESSMENT: * Ms Mckenzie is a 60yo diabetic female POD 0 s/p L TKA this morning with Dr Verma. * Pt received an ortho mix containing dexamethasone this morning, which may contribute to steroid-induced hyperglycemia. * Will plan to resume Metformin tomorrow morning, as long as pt is tolerating her diet and renal function is appropriate. * Novolog added to provide prandial/correctional coverage. PLAN FOR INPATIENT GLYCEMIC CONTROL: * Hold outpatient oral diabetes medications * Resume Metformin tomorrow morning (03/31). * Basal insulin * none at this time * Bolus insulin * NovoLog per scale ACHS or Q6hrs while NPO * Goal Range: Low 110 mg/dL - High 140 mg/dL * Correction Factor: 25 mg/dL/unit * Nutritional / Prandial insulin per carb ratio of 1 unit per 9 grams CHO consumed PLAN FOR DISCHARGE: * Patient's A1c (7.2%) indicates adequate glycemic control. * Expect that patient may resume home regimen on discharge as long as she does not report having episodes of hypoglycemia.
[2020-03-30] MEDS: SODIUM CHLORIDE 0.9% 1000ML 1,000 ML IV SCH ×2 (12:26→21:36)
[2020-03-30] MEDS: INSULIN ASPART 100 UNITS/ML 3 ML PEN SC SCH ×3 (12:50→21:38)
[2020-03-30] MEDS: GABAPENTIN 100 MG CAP PO SCH ×2 (12:54→20:25)
[2020-03-30] MEDS: ACETAMINOPHEN 500 MG TAB PO SCH ×2 (12:54→21:37)
[2020-03-30] MEDS: HYDROmorphone INJ 0.5 MG/0.5 ML SYR IV PRN ×2 (15:42→20:31)
[2020-03-30] MEDS: CEFAZOLIN 2000MG 2,000 MG/15 ML SYR IV SCH ×2 (15:43→23:18)
[2020-03-30] MEDS: FERROUS GLUCONATE 324 MG TAB PO SCH (16:15)
[2020-03-30] MEDS: OXYCODONE HCL IR 5 MG TAB (IMMEDIATE RELEASE) PO PRN ×2 (18:07→23:25)
[2020-03-30] MEDS: DOCUSATE SODIUM 100 MG CAP PO SCH (20:24)
[2020-03-30] MEDS: ASPIRIN 81 MG ECTAB PO SCH (20:24)
[2020-03-30] MEDS: ATORVASTATIN 40 MG TAB PO SCH (20:25)
[2020-03-30] MEDS: SENNA 8.6 MG TAB PO SCH (20:26)
[2020-03-31] MEDS: OXYCODONE HCL IR 5 MG TAB (IMMEDIATE RELEASE) PO PRN ×5 (05:06→20:50)
[2020-03-31] MEDS: ACETAMINOPHEN 500 MG TAB PO SCH ×3 (05:06→20:53)
[2020-03-31 06:14] LABS: Hematocrit (blood only) 30.6 % (37-47); Hemoglobin 10.2 g/dL (12.0-16.0); Mean Corpuscular Hemoglobin 28.3 pg (25-34); Mean Corpuscular Hgb Conc 33.3 g/dL (32-36); Mean Corpuscular Volume 84.8 fL (80-100); Mean Platelet Volume 9.7 fL (7.4-10.4); Platelet Count 180 K/uL (130-400); RDW Coefficient of Variation 13.8 % (11.5-14.5); Red Blood Count 3.61 M/uL (4.2-5.4); White Blood Count 7.43 K/uL (4.8-10.8)
[2020-03-31 06:50] LABS: BUN Creatinine Ratio 16.8 (10-20); Calcium 8.5 mg/dl (8.5-10.1); Creatinine Clr Calc Pharmacy 97.7 ml/min; Est GFR (African American) 86.9; Potassium 3.4 mmol/L (3.5-5.1)
--- NOTE | 2020-03-31 06:56 | Orthopedic Progress Note ---
Date of Service March 31, 2020 Assessment & Plan (1) History of total left knee replacement: POD #1 s/p Left TKA pt/ot dvt proph with YOLANDA/SCD/ASA plan for d/c home with OPPT when stable Admission and Anticipated Discharge Date Admission Date: March 30, 2020 Subjective POD #1 s/p Left TKA Review of Systems Constitutional: no fever, no chills and no sweats Respiratory: no cough and no dyspnea Cardiovascular: no chest pain and no dyspnea Gastrointestinal: no abdominal pain, no nausea and no vomiting Physical Exam Physical Exam: Vital Signs Temp 36.8 C 03/31/20 03:45 Pulse 65 03/31/20 03:45 Resp 18 03/31/20 03:45 BP 106/69 03/31/20 03:45 Pulse Ox 92 03/31/20 03:45 Intake & Output 03/30/20 03/30/20 03/31/20 06:59 18:59 06:59 Intake Total 1997.5 / 4267.500 2270.000 / 4267.50 0 Output Total 560 / 1610 1050 / 1610 Balance 1437.5 / 2657.500 1220.000 / 2657.50 0 Weight 134.399 kg 134.399 kg Intake: IV 422.5 / 2042.500 1620.000 / 2042.50 0 Ancef 3000MG 7 2.5 ml @ 130 mls/ 72.5 / 72.5 hr IV PREOP SC H Rx#:[id number] Lr 1,000 ml @ 15 mls/hr IV . 350 / 350 Q24H CHILO Rx#:0 [id number] Nss 1000ML 1,0 00 ml @ 100 mls/ 1620.000 / 1620.00 0 hr IV .Q10H SC H Rx#:[id number] IV Perioperative 1100 / 1100 Oral 475 / 1125 650 / 1125 Output: Urine 550 / 1300 750 / 1300 Estimated Blood Loss 10 / 10 Drain Output 300 / 300 Left Knee Hemo vac 300 / 300 Constitutional: WD/WN, vitals as above no acute distress Musculoskeletal: Left Leg: NVDI, calf SNT, negative rani sign. DP palpable, able to wiggle toes/ankle movement without difficulty. dressing clean dry and intact. Results & Data ([facility]) Vital Signs (Past 12 Hours) Vital Signs Temp Pulse Resp BP BP Pulse Ox 03/31/20 03:45 36.8 C 65 18 106/69 92 03/30/20 23:59 36.7 C 65 18 107/66 93 03/30/20 19:15 36.4 C L 65 20 114/72 93 Laboratory Results Laboratory Results WBC 7.43 K/uL (4.8-10.8) 03/31/20 05:59 RBC 3.61 M/uL (4.2-5.4) L 03/31/20 05:59 Hgb 10.2 g/dL (12.0-16.0) L 03/31/20 05:59 Hct 30.6 % (37-47) L 03/31/20 05:59 MCV 84.8 fL (80-100) 03/31/20 05:59 MCH 28.3 pg (25-34) 03/31/20 05:59 MCHC 33.3 g/dL (32-36) 03/31/20 05:59 RDW Std Deviation 42.0 fL (36.4-46.3) 03/31/20 05:59 RDW Coeff of Yue 13.8 % (11.5-14.5) 03/31/20 05:59 Plt Count 180 K/uL (130-400) 03/31/20 05:59 MPV 9.7 fL (7.4-10.4) 03/31/20 05:59 Immature Gran % (Auto) 0.1 % 03/07/20 12:28 Neut % (Auto) 60.1 % 03/07/20 12:28 Lymph % (Auto) 32.5 % 03/07/20 12:28 [place] % (Auto) 4.6 % 03/07/20 12:28 Eos % (Auto) 2.2 % 03/07/20 12:28 Baso % (Auto) 0.5 % 03/07/20 12:28 Immature Gran # (Auto) 0.01 K/uL (0.00-0.02) 03/07/20 12:28 Neut # (Auto) 5.11 K/uL (1.4-6.5) 03/07/20 12:28 Lymph # (Auto) 2.76 K/uL (1.2-3.4) 03/07/20 12:28 [place] # (Auto) 0.39 K/uL (0.11-0.59) 03/07/20 12:28 Eos # (Auto) 0.19 K/uL (0-0.5) 03/07/20 12:28 Baso # (Auto) 0.04 K/uL (0-0.2) 03/07/20 12:28 PT 10.4 Seconds (9.0-12.0) 03/07/20 12:28 INR 1.0 (0.9-1.1) 03/07/20 12:28 APTT 25.2 Seconds (21.0-31.0) 03/07/20 12:28 PTT Ratio 0.9 03/07/20 12:28 Sodium 138 mmol/L (136-145) 03/31/20 05:59 Potassium 3.4 mmol/L (3.5-5.1) L 03/31/20 05:59 Chloride 105 mmol/L (98-107) 03/31/20 05:59 Carbon Dioxide 25 mmol/L (21-32) 03/31/20 05:59 Anion Gap 8.0 (3-11) 03/31/20 05:59 BUN 14 mg/dl (7-18) 03/31/20 05:59 Creatinine 0.84 mg/dl (0.6-1.2) 03/31/20 05:59 Est Cr Clr Drug Dosing 97.7 ml/min 03/31/20 05:59 Est GFR ( Amer) 86.9 03/31/20 05:59 Est GFR (Non-Af Amer) 75.0 03/31/20 05:59 BUN/Creatinine Ratio 16.8 (10-20) 03/31/20 05:59 Glucose 164 mg/dl (70-99) H 03/31/20 05:59 POC Glucose 191 mg/dl (70-99) H 03/30/20 20:51 Estimat Average Glucose 160 mg/dl 03/07/20 12:28 Hemoglobin A1c 7.2 % (4.5-5.6) H 03/07/20 12:28 Calcium 8.5 mg/dl (8.5-10.1) 03/31/20 05:59 Albumin 3.8 gm/dl (3.4-5.0) 03/07/20 12:28 Blood Type O Negative 03/07/20 12:28 Antibody Screen NEGATIVE 03/07/20 12:28 Diagnostic Findings XR knee LT 1 or 2V routine CLINICAL HISTORY: Postoperative evaluation. COMPARISON: None FINDINGS: Alignment of the total left knee arthroplasty is anatomic. There is no periprosthetic fracture or unexpected radiopaque foreign body. There are skin shivam. IMPRESSION: Expected findings following total left knee arthroplasty.
[2020-03-31] MEDS: CHOLECALCIFEROL 1,000 UNITS 25 MCG TAB PO SCH (08:51)
[2020-03-31] MEDS: FERROUS GLUCONATE 324 MG TAB PO SCH ×2 (08:51→17:54)
[2020-03-31] MEDS: GABAPENTIN 100 MG CAP PO SCH ×3 (08:51→20:53)
[2020-03-31] MEDS: MULTIVITAMIN TAB PO SCH (08:51)
[2020-03-31] MEDS: METFORMIN HCL 500 MG TAB PO SCH ×2 (08:51→17:54)
[2020-03-31] MEDS: DOCUSATE SODIUM 100 MG CAP PO SCH ×2 (08:51→20:52)
[2020-03-31] MEDS: ASPIRIN 81 MG ECTAB PO SCH ×2 (08:51→20:52)
[2020-03-31] MEDS: INSULIN ASPART 100 UNITS/ML 3 ML PEN SC SCH ×4 (08:57→21:06)
[2020-03-31] MEDS ORDERED: LANTUS PER UNIT CHARGE SQ ONE (09:00)
--- NOTE | 2020-03-31 13:02 | Pharmacy Report ---
Pharmacy Glycemic Short Note 2 - Date of Service March 31, 2020 - Glycemic Short BSG Results (Last 24 hours): 03/30/20 03/30/20 03/31/20 17:16 20:51 05:59 Glucose 164 H POC Glucose 220 H 191 H 03/31/20 03/31/20 08:25 12:14 Glucose POC Glucose 178 H 132 H OUTPATIENT ANTIDIABETIC REGIMEN: * Metformin 1gm PO BID * Novolog PRN * HbA1c: 7.2% (03/07/20) ASSESSMENT: * POD #1 s/p L TKA * Majority of BSGs are above goal, including fasting: * Will start conservative dose of weight based basal insulin * Tighten Novolog CF/CR * Metformin resumed this morning PLAN FOR INPATIENT GLYCEMIC CONTROL: * Metformin 1000 mg PO BID * Basal insulin * Lantus 12 units SQ x 1 * Bolus insulin - tighten * NovoLog per scale ACHS or Q6hrs while NPO * Goal Range: Low 110 mg/dL - High 140 mg/dL * Correction Factor: 20 mg/dL/unit * Nutritional / Prandial insulin per carb ratio of 1 unit per 7 grams CHO consumed PLAN FOR DISCHARGE: * Patient's A1c (7.2%) indicates adequate glycemic control. * Expect that patient may resume home regimen on discharge as long as she does not report having episodes of hypoglycemia.
[2020-03-31] MEDS: HYDROmorphone INJ 0.5 MG/0.5 ML SYR IV PRN (17:48)
[2020-03-31] MEDS: ATORVASTATIN 40 MG TAB PO SCH (20:53)
[2020-03-31] MEDS: ZONISAMIDE PO SCH (20:54)
[2020-03-31] MEDS: SENNA 8.6 MG TAB PO SCH (22:47)
[2020-04-01] MEDS: OXYCODONE HCL IR 5 MG TAB (IMMEDIATE RELEASE) PO PRN ×3 (01:25→09:53)
[2020-04-01] MEDS: ACETAMINOPHEN 500 MG TAB PO SCH ×3 (05:41→21:47)
[2020-04-01] MEDS: HYDROmorphone INJ 0.5 MG/0.5 ML SYR IV PRN ×2 (07:33→13:42)
[2020-04-01] MEDS ORDERED: LANTUS PER UNIT CHARGE SQ ONE (09:00)
[2020-04-01] MEDS: DOCUSATE SODIUM 100 MG CAP PO SCH ×2 (09:07→21:44)
[2020-04-01] MEDS: ASPIRIN 81 MG ECTAB PO SCH ×2 (09:07→21:44)
[2020-04-01] MEDS: FERROUS GLUCONATE 324 MG TAB PO SCH ×2 (09:07→17:07)
[2020-04-01] MEDS: MULTIVITAMIN TAB PO SCH (09:07)
[2020-04-01] MEDS: METFORMIN HCL 500 MG TAB PO SCH ×2 (09:07→17:06)
[2020-04-01] MEDS: CHOLECALCIFEROL 1,000 UNITS 25 MCG TAB PO SCH (09:07)
[2020-04-01] MEDS: GABAPENTIN 100 MG CAP PO SCH ×3 (09:07→21:45)
[2020-04-01] MEDS: INSULIN ASPART 100 UNITS/ML 3 ML PEN SC SCH ×4 (09:09→21:49)
--- NOTE | 2020-04-01 09:12 | Pharmacy Report ---
Pharmacy Glycemic Short Note 2 - Date of Service April 01, 2020 - Glycemic Short BSG Results (Last 24 hours): 03/31/20 03/31/20 03/31/20 12:14 17:03 20:33 POC Glucose 132 H 160 H 165 H 04/01/20 08:25 POC Glucose 179 H OUTPATIENT ANTIDIABETIC REGIMEN: * Metformin 1gm PO BID * Novolog PRN * HbA1c: 7.2% (03/07/20) ASSESSMENT: * POD #2 s/p L TKA * Acceptable BSGs over the past 24 hours with the exception of elevated fasting glucose: * Will order a second dose of Lantus to be given this morning (increase dose by 25%) PLAN FOR INPATIENT GLYCEMIC CONTROL: * Metformin 1000 mg PO BID * Basal insulin * Lantus 15 units SQ this morning * Bolus insulin * NovoLog per scale ACHS or Q6hrs while NPO * Goal Range: Low 110 mg/dL - High 140 mg/dL * Correction Factor: 20 mg/dL/unit * Nutritional / Prandial insulin per carb ratio of 1 unit per 7 grams CHO consumed PLAN FOR DISCHARGE: * Patient's A1c (7.2%) indicates adequate glycemic control. * Expect that patient may resume home regimen on discharge as long as she does not report having episodes of hypoglycemia. * Tight glycemic control is ideal in the post-operative setting to promote wound healing and reduce the risk of post-op infection. Recommend close monitoring of glucose at home and f/u with PCP if values regularly exceed 180 mg/dL.
[2020-04-01] MEDS ORDERED: KETOROLAC 30 MG/ML VIAL IV ONE (13:43)
--- NOTE | 2020-04-01 15:08 | Orthopedic Progress Note ---
Date of Service April 01, 2020 Assessment & Plan (1) History of total left knee replacement: POD #2 s/p Left TKA Toradol added to her pain medication regimen. pt/ot dvt proph with YOLANDA/SCD/ASA plan for d/c home with OPPT when stable. We will recheck her today to see how her pain control is and discuss plans for discharge. Admission and Anticipated Discharge Date Admission Date: March 30, 2020 Subjective Postop day 2 Patient lying in bed this afternoon. She is somewhat tearful due to pain control. She states that she is waiting for some pain medication to come. She stated that PT was somewhat difficult due to her pain control. She was hoping to go home today however we discussed that pending her pain control, will decide if we can get her home today. She denies any shortness of breath or chest pain. Denies lightheadedness. Currently painful in the knee itself. Physical Exam Physical Exam: Pravena dressing is clean, dry, and intact. No erythema noted around the dressing or the knee. Calves are soft and nontender. Neurovascular is intact. Toes are mobile. Results & Data ([facility]) Vital Signs (Past 12 Hours) Vital Signs Temp Pulse Resp BP Pulse Ox 04/01/20 07:20 37.1 C 89 18 104/67 94
[2020-04-01] MEDS: MoRPHine SULFATE CR 15 MG TABCR PO SCH (17:06)
[2020-04-01] MEDS ORDERED: KETOROLAC 30 MG/ML VIAL IV SCH (20:00)
[2020-04-01] MEDS: SENNA 8.6 MG TAB PO SCH (21:45)
[2020-04-01] MEDS: ATORVASTATIN 40 MG TAB PO SCH (21:45)
[2020-04-01] MEDS: ZONISAMIDE PO SCH (21:46)
[2020-04-02] MEDS: KETOROLAC TROMETHAMINE 15 MG/ML VIAL IV SCH ×2 (02:37→09:07)
[2020-04-02] MEDS: MoRPHine SULFATE CR 15 MG TABCR PO SCH ×2 (05:10→17:11)
[2020-04-02] MEDS: ACETAMINOPHEN 500 MG TAB PO SCH ×3 (05:10→22:22)
[2020-04-02 07:03] LABS: BUN Creatinine Ratio 18.9 (10-20); Calcium 8.7 mg/dl (8.5-10.1); Creatinine Clr Calc Pharmacy 113.9 ml/min; Est GFR (African American) 104.8; Est GFR (Non-African American) 90.4; Potassium 3.4 mmol/L (3.5-5.1)
[2020-04-02] MEDS ORDERED: POTASSIUM CHLORIDE 20 MEQ TABCR PO STA (07:40)
[2020-04-02] MEDS ORDERED: SODIUM CHLORIDE 0.9% 1000ML 1,000 ML IV SCH (07:45)
--- NOTE | 2020-04-02 07:47 | Hospitalist Consultation ---
Date of Consultation April 02, 2020 Assessment & Plan (1) Atrial flutter: With a history of frequent palpitations in the past very similar to what she is feeling currently in rapid atrial flutter. Most likely has had paroxysmal flutter for couple of years. With a history of CVA in 2018 on baby aspirin daily Also with a history of diabetes, she is at high risk for stroke. Fortunately, her blood pressure is stable and she is asymptomatic other than palpitations at this time Discussed anticoagulation with her and she would like to decide about this and talk to the sanitary engineering teacher. Also, would want to clear this with orthopedic surgeon before starting given the surgery yesterday, but most likely would be okay is postop day #1. -Transfer to PCU for telemetry monitoring -Give diltiazem 30 mg p.o. x1 now for rate control and will defer to cardiology for further medication management -Consult cardiology -Check echocardiogram -Replace potassium and follow chemistry -Encourage CPAP compliance (2) Hyponatremia: Sodium mildly low at 133, likely mildly dehydrated -Give 1 L normal saline at 125 mL's per hour -Follow BMP in the morning (3) Hypokalemia: Potassium mildly low at 3.4, with rapid atrial flutter as above -Replace with 40 M EQ of potassium chloride p.o. x1 now -Follow BMP, magnesium in the morning (4) History of total left knee replacement: Postop day #1 status post left TKA Postop management as per orthopedics (5) Diabetes mellitus, type 2: With some hyperglycemia here Continue sliding scale insulin, Accu-Cheks Hold metformin for now while in the hospital Hemoglobin A1c was 6.9% as per outpatient medical clearance notes (6) History of stroke: As mentioned above, 2018 with residual effects of mild expressive aphasia Continue aspirin 81 mg for now, but may convert to anticoagulation as above and if so, would recommend discontinuation of aspirin given her history of epistaxis -Continue statin (7) Sleep apnea: Encourage CPAP compliance (8) Pulmonary HTN: Mentioned have a RSVP of 60 -Checking echo here -Likely basis of OC and morbid obesity Lasix as needed Oxygen as needed (9) Morbid obesity: BMI 49.3 -Encouraged weight loss (10) Lymphedema: Uses Lasix as needed None needed right now (11) GERD (gastroesophageal reflux disease): Takes PPI. (12) Fibromyalgia: Noted -Continue gabapentin (13) Acute blood loss anemia: Hemoglobin with slight loss down to 9 today Hemodynamically stable -We will stop Toradol especially as she will probably be going on anticoagulation as above -Follow CBC (14) Rheumatoid arthritis: Seronegative, no longer on Plaquenil (15) Asthma: No acute issues Continue albuterol as needed (16) Constipation: With a history of no bowel movement x10 days after her last knee surgery Did have a small bowel movement this morning -Continue aggressive bowel regimen with docusate sodium twice daily, senna 17.2 mg daily MiraLAX daily (17) DVT prophylaxis: Aspirin twice daily, SCDs for now, likely transitioning to therapeutic anticoagulation Disposition-transfer to PCU Hospitalist service will follow along History of Present Illness Reason for Consultation: Tachycardia Requesting Physician: Dr. Verma Attending Physician: Randy Verma, History of Present Illness This patient is a 60-year-old female with history of ischemic CVA, morbid obesity, OA, DM 2, RA, GERD, lower extremity edema, hyperlipidemia, vitamin D deficiency, fibromyalgia, asthma/COPD, IBS, OC who is here for a left TKA. Medical service was consulted for acute tachycardia. An ECG was performed and showed atrial flutter with a rate in the 120s, no ischemic changes. She reports feeling palpitations in her chest and has felt this every few months for several years. She reports her doctor wanted her to have a loop recorder, but she dec lined in the past. She denies any chest pain or shortness of breath at this time. Denies headache or numbness or weakness. She only has residual difficulty with expressive aphasia at times. Her blood pressure was stable at the time I saw her. She reports a history of epistaxis with aspirin and is concerned about going on anticoagulation. She otherwise has no history of bleeding from anywhere. Of note, she declined using her CPAP here last night. Allergies Allergy/AdvReac Type Severity Reaction Status Date / Time No Known Allergies Allergy Verified 03/30/20 06:41 Home Medications Home Medications Medication Instructions Recorded Confirmed Type albuterol sulfate 2 puff INHALATION Q6H PRN 06/30/19 03/30/20 History atorvastatin 40 mg PO HS 06/30/19 03/30/20 History cholecalciferol (vitamin D3) 5,000 unit PO QAM 06/30/19 03/30/20 History [Vitamin D3] dicyclomine 10 mg PO TID PRN 06/30/19 03/30/20 History docusate sodium [Stool Softener] 100 mg PO BID 06/30/19 03/30/20 History furosemide 20 mg PO QAM 06/30/19 03/30/20 History gabapentin 100 mg PO TID 06/30/19 03/30/20 History insulin asp prt-insulin aspart 10 unit SUBCUT DAILY PRN 06/30/19 03/30/20 History [Novolog Mix 70-30FlexPen U-100] metformin 1,000 mg PO BID 06/30/19 03/30/20 History omeprazole 40 mg PO DAILY PRN 06/30/19 03/30/20 History zonisamide 400 mg PO HS 06/30/19 03/30/20 History acetaminophen [Tylenol Extra 500 mg PO BID PRN 03/02/20 03/30/20 History Strength] aspirin [Aspir-81] 81 mg PO QAM 03/02/20 03/30/20 History turmeric root extract 500 mg PO QAM 03/02/20 03/30/20 History acetaminophen 1,000 mg PO Q8 14 Days #84 tab 03/31/20 Rx aspirin 81 mg PO BID 30 Days #60 tab 03/31/20 Rx sennosides [Senokot] 17.2 mg PO HS #30 tab 03/31/20 Rx Patient History Medical History (Updated 04/02/20 @ 08:34 by Alicia Cain MD) Asthma Well controlled and stable Atrial flutter Carpal tunnel syndrome of right wrist Intermittent numbness and tingling DDD (degenerative disc disease), lumbar Diabetes mellitus, type 2 IDDM- Stable and controlled Diabetic neuropathy ankles, feet- results in difficulty with ambulation Fibromyalgia GERD (gastroesophageal reflux disease) DIET MANAGED Hiatal hernia History of blood transfusion s/p childbirth History of stroke 12/2017-SPONTANEOUSLY AT HOME-RESIDUAL EFFECTS MEMORY ISSUES/TAKES SEIZURE MED SINCE-NO SEIZURES- NO REPEAT EVENTS- FOLLOWS WITH NEURO Q 6 MONTHS Lymphedema Bilateral LEs Morbid obesity Osteoarthritis Plantar fasciitis B/L Pulmonary HTN RSVP cannot be properly estimated because of inadequate TR spectral doppler profile but probably greater than 60mmhg* per 12/2017 ECHO Rheumatoid arthritis Was following with rheum - no longer taking Plaquenil - no recent follow up Sleep apnea CPAP Surgical History History of colonoscopy History of surgery LEFT HEEL History of total knee replacement RIGHT Hx of cardiac cath 2006= NO STENTS Hx of section X1 Hx of cholecystectomy Status post total knee replacement, left Family History Brother Family history of diabetes mellitus Grandfather (Maternal) Family history of diabetes mellitus Grandfather (Paternal) No problems noted. Uncle Family hx of colon cancer Uncle Family hx of colon cancer Social History Preferred Language: Hungarian Communication Ability: Effective Advertisement Compositor Required: No Beliefs That Will Affect Care: None marital status: Current Living Situation: Family Current Living Situation Comment: DAUGHTER LIVES WITH PT Other Information That Helps Us Care for You: No Feels Safe at Home: Yes Safety Concerns: Feels Safe At This Time Smoking Status: Never smoker Do You Dip or Chew Tobacco: No ; Second Hand Exposure: Yes (FIRST ) ; Hx Alcohol Use: No Hx Substance Use: No Review of Systems Review of Systems: All systems reviewed & are unremarkable except as noted in HPI & below Pain in the knee is better controlled today after getting 1 dose of OxyContin Reports that the Dilaudid through the IV hurts her arm Physical Exam Constitutional: WD/WN, vitals as above + morbidly obese Eyes: + anicteric sclerae Neck: trachea midline, no thyromegaly Respiratory: normal respiratory effort, lungs clear to auscultation Cardiovascular: Rate/Rhythm: + tachycardic and + irregularly irregular Heart Sounds: no murmur Extremities: + edema (Trace edema in the legs bilaterally) Chest (Breasts): Chest: normal inspection of chest Gastrointestinal (Abdomen): normal bowel sounds, soft, nontender, no hepatosplenomegaly Musculoskeletal: Extremities: + extremities abnormal to inspection (Left knee with wound VAC in place and ice pack with minimal edema), no cyanosis and no clubbing Skin: no rashes, warm and dry Neurologic: moves all extremities and awake; no focal motor deficits Psychiatric: A+Ox3, euthymic affect Lymphatic: no lymphedema Results & Data Results & Data ([facility]) Vital Signs (Past 12 Hours) Vital Signs Temp Pulse Resp BP Pulse Ox 04/02/20 07:00 37.1 C 132 H 20 122/67 94 04/02/20 00:21 36.6 C 90 18 107/69 92 Laboratory Results 04/02/20 04/02/20 04/02/20 Range/Units 08:07 05:42 05:38 WBC 10.91 H (4.8-10.8) K/uL RBC 3.34 L (4.2-5.4) M/uL Hgb 9.2 L (12.0-16.0) g/dL Hct 28.9 L (37-47) % MCV 86.5 (80-100) fL MCH 27.5 (25-34) pg MCHC 31.8 L (32-36) g/dL RDW Std Deviation 44.9 (36.4-46.3) fL RDW Coeff of Yue 14.2 (11.5-14.5) % Plt Count 194 (130-400) K/uL MPV 10.3 (7.4-10.4) fL Sodium 133 L (136-145) mmol/L Potassium 3.4 L (3.5-5.1) mmol/L Chloride 102 (98-107) mmol/L Carbon Dioxide 23 (21-32) mmol/L Anion Gap 8.0 (3-11) BUN 14 (7-18) mg/dl Creatinine 0.72 (0.6-1.2) mg/dl Est Cr Clr Drug Dosing 113.9 ml/min Est GFR ( Amer) 104.8 Est GFR (Non-Af Amer) 90.4 BUN/Creatinine Ratio 18.9 (10-20) Glucose 150 H (70-99) mg/dl POC Glucose 168 H (70-99) mg/dl Calcium 8.7 (8.5-10.1) mg/dl 04/01/20 04/01/20 04/01/20 Range/Units 20:38 16:34 11:48 WBC (4.8-10.8) K/uL RBC (4.2-5.4) M/uL Hgb (12.0-16.0) g/dL Hct (37-47) % MCV (80-100) fL MCH (25-34) pg MCHC (32-36) g/dL RDW Std Deviation (36.4-46.3) fL RDW Coeff of Yue (11.5-14.5) % Plt Count (130-400) K/uL MPV (7.4-10.4) fL Sodium (136-145) mmol/L Potassium (3.5-5.1) mmol/L Chloride (98-107) mmol/L Carbon Dioxide (21-32) mmol/L Anion Gap (3-11) BUN (7-18) mg/dl Creatinine (0.6-1.2) mg/dl Est Cr Clr Drug Dosing ml/min Est GFR ( Amer) Est GFR (Non-Af Amer) BUN/Creatinine Ratio (10-20) Glucose (70-99) mg/dl POC Glucose 156 H 153 H 190 H (70-99) mg/dl Calcium (8.5-10.1) mg/dl 04/01/20 Range/Units 08:25 WBC (4.8-10.8) K/uL RBC (4.2-5.4) M/uL Hgb (12.0-16.0) g/dL Hct (37-47) % MCV (80-100) fL MCH (25-34) pg MCHC (32-36) g/dL RDW Std Deviation (36.4-46.3) fL RDW Coeff of Yue (11.5-14.5) % Plt Count (130-400) K/uL MPV (7.4-10.4) fL Sodium (136-145) mmol/L Potassium (3.5-5.1) mmol/L Chloride (98-107) mmol/L Carbon Dioxide (21-32) mmol/L Anion Gap (3-11) BUN (7-18) mg/dl Creatinine (0.6-1.2) mg/dl Est Cr Clr Drug Dosing ml/min Est GFR ( Amer) Est GFR (Non-Af Amer) BUN/Creatinine Ratio (10-20) Glucose (70-99) mg/dl POC Glucose 179 H (70-99) mg/dl Calcium (8.5-10.1) mg/dl ECG Additional Comments: ECG with atrial flutter with variable AV block, rate 121, no acute ischemic changes PG Care Time/CCT Total # of Minutes Spent Total Time Spent with Patient: Total time spent is greater than 50% in coordination of care (as documented) at patient's floor/unit and/or counseling patient: Coding Level of Care Code 64111 Inpt Consult Level 3 Diagnoses Atrial flutter I48.92 Hyponatremia E87.1 Hypokalemia E87.6 History of total left knee replacement Z96.652 Diabetes mellitus, type 2 E11.9 History of stroke Z86.73 Sleep apnea G47.30 Pulmonary HTN I27.20 Morbid obesity E66.01 Lymphedema I89.0 GERD (gastroesophageal reflux disease) K21.9 Fibromyalgia M79.7 Acute blood loss anemia D62 Rheumatoid arthritis M06.9 Asthma J45.909 Constipation K59.00 DVT prophylaxis Z29.9
[2020-04-02] MEDS ORDERED: dilTIAZem HCL 30 MG TAB PO ONE (07:56)
[2020-04-02 07:59] LABS: Hematocrit (blood only) 28.9 % (37-47); Hemoglobin 9.2 g/dL (12.0-16.0); Mean Corpuscular Hemoglobin 27.5 pg (25-34); Mean Corpuscular Hgb Conc 31.8 g/dL (32-36); Mean Corpuscular Volume 86.5 fL (80-100); Mean Platelet Volume 10.3 fL (7.4-10.4); Platelet Count 194 K/uL (130-400); RDW Coefficient of Variation 14.2 % (11.5-14.5); RDW Standard Deviation 44.9 fL (36.4-46.3); Red Blood Count 3.34 M/uL (4.2-5.4); White Blood Count 10.91 K/uL (4.8-10.8)
[2020-04-02] MEDS: FERROUS GLUCONATE 324 MG TAB PO SCH ×2 (08:18→17:13)
[2020-04-02] MEDS: METFORMIN HCL 500 MG TAB PO SCH (08:18)
--- NOTE | 2020-04-02 08:18 | Orthopedic Progress Note ---
Date of Service April 02, 2020 Assessment & Plan (1) History of total left knee replacement: POD #3 s/p Left TKA New onset atrial flutter-patient being transferred down to telemetry unit. Please see Dr. Cain's consult. Anemia - Hgb 9.2 this AM. Pre op 11.6 Hypokalemia/hyponatremia - as per Dr. Cain Toradol dc'd. Pain control much better. pt/ot dvt proph with YOLANDA/SCD/ASA plan for d/c home with OPPT when stable. Admission and Anticipated Discharge Date Admission Date: March 30, 2020 Subjective POD 3 s/p Left TKA Nursing contacted me this AM concerning pt's heart rate. Pulse 132 this AM. Ordered stat EKG, CBC ordered. Consulted Dr. Cain and spoke to her about the patient. Ekg showing A Flutter. Arrived in pt's room. Dr. Cain present and speaking to patient. Pt awake, alert, oriented. Patient appears comfortable and states her pain control is much better today. States that she felt her chest fluttering a little bit and has had this in the past which has corrected on its own. Denies chest pain or shortness of breath currently. Physical Exam Physical Exam: Prevena dressing is intact and functioning. No drainage noted. Bruising noted around the drain sites. Calves are soft nontender. Neurovascular is intact. Toes are mobile. Results & Data ([facility]) Vital Signs (Past 12 Hours) Vital Signs Temp Pulse Resp BP Pulse Ox 04/02/20 07:00 37.1 C 132 H 20 122/67 94 04/02/20 00:21 36.6 C 90 18 107/69 92 Laboratory Results Laboratory Results WBC 10.91 K/uL (4.8-10.8) H 04/02/20 05:42 RBC 3.34 M/uL (4.2-5.4) L 04/02/20 05:42 Hgb 9.2 g/dL (12.0-16.0) L 04/02/20 05:42 Hct 28.9 % (37-47) L 04/02/20 05:42 MCV 86.5 fL (80-100) 04/02/20 05:42 MCH 27.5 pg (25-34) 04/02/20 05:42 MCHC 31.8 g/dL (32-36) L 04/02/20 05:42 RDW Std Deviation 44.9 fL (36.4-46.3) 04/02/20 05:42 RDW Coeff of Yue 14.2 % (11.5-14.5) 04/02/20 05:42 Plt Count 194 K/uL (130-400) 04/02/20 05:42 MPV 10.3 fL (7.4-10.4) 04/02/20 05:42 Immature Gran % (Auto) 0.1 % 03/07/20 12:28 Neut % (Auto) 60.1 % 03/07/20 12:28 Lymph % (Auto) 32.5 % 03/07/20 12:28 [place] % (Auto) 4.6 % 03/07/20 12:28 Eos % (Auto) 2.2 % 03/07/20 12:28 Baso % (Auto) 0.5 % 03/07/20 12:28 Immature Gran # (Auto) 0.01 K/uL (0.00-0.02) 03/07/20 12:28 Neut # (Auto) 5.11 K/uL (1.4-6.5) 03/07/20 12:28 Lymph # (Auto) 2.76 K/uL (1.2-3.4) 03/07/20 12:28 [place] # (Auto) 0.39 K/uL (0.11-0.59) 03/07/20 12:28 Eos # (Auto) 0.19 K/uL (0-0.5) 03/07/20 12: Baso # (Auto) 0.04 K/uL (0-0.2) 03/07/20 12:28 PT 10.4 Seconds (9.0-12.0) 03/07/20 12: INR 1.0 (0.9-1.1) 03/07/20 12: APTT 25.2 Seconds (21.0-31.0) 03/07/20 12: PTT Ratio 0.9 03/07/20 12:28 Sodium 133 mmol/L (136-145) L 04/02/20 05:38 Potassium 3.4 mmol/L (3.5-5.1) L 04/02/20 05:38 Chloride 102 mmol/L (98-107) 04/02/20 05:38 Carbon Dioxide 23 mmol/L (21-32) 04/02/20 05:38 Anion Gap 8.0 (3-11) 04/02/20 05:38 BUN 14 mg/dl (7-18) 04/02/20 05:38 Creatinine 0.72 mg/dl (0.6-1.2) 04/02/20 05:38 Est Cr Clr Drug Dosing 113.9 ml/min 04/02/20 05:38 Est GFR ( Amer) 104.8 04/02/20 05:38 Est GFR (Non-Af Amer) 90.4 04/02/20 05:38 BUN/Creatinine Ratio 18.9 (10-20) 04/02/20 05:38 Glucose 150 mg/dl (70-99) H 04/02/20 05:38 POC Glucose 168 mg/dl (70-99) H 04/02/20 08:07 Estimat Average Glucose 160 mg/dl 03/07/20 12:28 Hemoglobin A1c 7.2 % (4.5-5.6) H 03/07/20 12:28 Calcium 8.7 mg/dl (8.5-10.1) 04/02/20 05:38 Albumin 3.8 gm/dl (3.4-5.0) 03/07/20 12:28 Hepatitis C Ab Screen Neg (Neg) 03/31/20 05:59 Blood Type O Negative 03/07/20 12:28 Antibody Screen NEGATIVE 03/07/20 12:28 Diagnostic Findings EKG CARDENAS KAUSHAL ID:[id number] 02-APR-2020 07:42:27 [facility]-MED[facility] ROUTINE RETRIEVAL * Atrial flutter with variable A-V block Low voltage QRS Cannot rule out Inferior infarct* , age undetermined Abnormal ECG No previous ECGs available 25mm/s 10mm/mV 150Hz 9.0.9 12SL 241 JAMESON: 6 Referred by: Randy Verma Unconfirmed Vent. rate 121 BPM [place] interval * ms QRS duration 88 ms QT/QTc 390/553 ms P-R-T axes * 1960 (60 yr) Female Room:[facility] Loc:28 Supervisor Adult Education:VARUN VÁZQUEZ
[2020-04-02] MEDS: ASPIRIN 81 MG ECTAB PO SCH (08:19)
[2020-04-02] MEDS: GABAPENTIN 100 MG CAP PO SCH ×3 (08:19→20:34)
[2020-04-02] MEDS: CHOLECALCIFEROL 1,000 UNITS 25 MCG TAB PO SCH (08:19)
[2020-04-02] MEDS: MULTIVITAMIN TAB PO SCH (08:20)
[2020-04-02] MEDS: DOCUSATE SODIUM 100 MG CAP PO SCH ×2 (08:20→20:31)
[2020-04-02] MEDS: INSULIN ASPART 100 UNITS/ML 3 ML PEN SC SCH ×4 (08:58→20:35)
--- NOTE | 2020-04-02 09:17 | Pharmacy Report ---
Pharmacy Glycemic Short Note 2 - Date of Service April 02, 2020 - Glycemic Short BSG Results (Last 24 hours): 04/01/20 04/01/20 04/01/20 11:48 16:34 20:38 Glucose POC Glucose 190 H 153 H 156 H 04/02/20 04/02/20 05:38 08:07 Glucose 150 H POC Glucose 168 H OUTPATIENT ANTIDIABETIC REGIMEN: * Metformin 1gm PO BID * Novolog PRN * HbA1c: 7.2% (03/07/20) ASSESSMENT: * POD #3 s/p L TKA * BSGs reasonably well-controlled throughout admission * Ranging 153-190 mg/dL yesterday * Novolog tightened yesterday - will continue * Patient started on diltiazem drip today (contains dextrose) - will follow * Patient refusing Lantus, hospitalist would prefer to hold metformin while inpatient - will manage with Novolog for now PLAN FOR INPATIENT GLYCEMIC CONTROL: * Hold metformin * Basal insulin * patient refusing Lantus - hold for now * Bolus insulin - tighten * NovoLog per scale ACHS or Q6hrs while NPO * Goal Range: Low 110 mg/dL - High 140 mg/dL * Correction Factor: 15 mg/dL/unit * Nutritional / Prandial insulin per carb ratio of 1 unit per 5 grams CHO consumed PLAN FOR DISCHARGE: * Patient's A1c (7.2%) indicates adequate glycemic control. * Expect that patient may resume home regimen on discharge as long as she does not report having episodes of hypoglycemia. * Tight glycemic control is ideal in the post-operative setting to promote wound healing and reduce the risk of post-op infection. Recommend close monitoring of glucose at home and f/u with PCP if values regularly exceed 180 mg/dL.
[2020-04-02] MEDS ORDERED: GLUCOSE 40% GEL 15 GM TUBE PO PRN (10:07)
[2020-04-02] MEDS ORDERED: CARBOHYDRATES FOR HYPOGLYCEMIA PO PRN (10:07)
[2020-04-02] MEDS ORDERED: GLUCOSE 10 TABS/TUBE PO PRN (10:07)
[2020-04-02] MEDS ORDERED: DEXTROSE 50% 50 ML SYRINGE IV PRN (10:07)
[2020-04-02] MEDS ORDERED: GLUCAGON FOR INJ 1 MG VIAL SQ PRN (10:07)
[2020-04-02] MEDS ORDERED: STAT IV Infusion **Titration per Protocol STA (10:16)
[2020-04-02] MEDS ORDERED: dilTIAZem HCl 5 MG/ML 5 ML VIAL IV STA (10:16)
[2020-04-02] MEDS: dilTIAZem HCL 125 MG in DEXTROSE 5% 100 ML IV SCH ×2 (11:01→18:36)
--- NOTE | 2020-04-02 13:59 | Cardiology Consultation ---
Date of Consultation April 02, 2020 Assessment & Plan (1) Atrial flutter: -rate difficult to control. -would add intravenous digoxin and metoprolol. -would start Eliquis 5 mg b.i.d. -can discontinue aspirin. -consider antiarrhythmic agent. (2) Hypokalemia: -receiving supplementation. History of Present Illness Attending Physician: Randy Verma DO History of Present Illness Mrs. Mckenzie is a 60-year-old female who underwent left knee replacement surgery with Dr. Verma on March 30. This morning, the patient was noticing palpitations and was found to be tachycardic. An EKG noted atrial flutter with a rapid and variable response. The patient was moved to the telemetry unit and this consultation was ordered. The patient has never known of the diagnosis of atrial flutter previously, however, she has noticed intermittent sustained palpitations for many years. She did have a CVA in 2018, however, atrial flutter was not identified at that time. The patient has not experienced chest discomfort or dyspnea with her atrial dysrhythmia. She further denies PND, orthopnea, and lower extremity edema. Currently, patient is resting comfortably in bed but does note some palpitations. Past medical and surgical history 1. Hypercholesterolemia 2. COPD 3. Diabetes mellitus 4. GERD 5. Hiatal hernia 6. History of CVA-2018 7. Obesity 8. Obstructive sleep apnea 9. Lymphedema 10. Fibromyalgia 11. Rheumatoid arthritis 12. Irritable bowel syndrome 13. Diabetic polyneuropathy 14. Carpal tunnel syndrome 15. Right TKR 16. 17. Cholecystectomy Social history , lives with her daughter No tobacco or alcohol Family history No early coronary artery disease Review systems A 10 point review systems was undertaken and negative except for that described above. Allergies Allergy/AdvReac Type Severity Reaction Status Date / Time No Known Allergies Allergy Verified 03/30/20 06:41 Home Medications Home Medications Medication Instructions Recorded Confirmed Type albuterol sulfate 2 puff INHALATION Q6H PRN 06/30/19 03/30/20 History atorvastatin 40 mg PO HS 06/30/19 03/30/20 History cholecalciferol (vitamin D3) 5,000 unit PO QAM 06/30/19 03/30/20 History [Vitamin D3] dicyclomine 10 mg PO TID PRN 06/30/19 03/30/20 History docusate sodium [Stool Softener] 100 mg PO BID 06/30/19 03/30/20 History furosemide 20 mg PO QAM 06/30/19 03/30/20 History gabapentin 100 mg PO TID 06/30/19 03/30/20 History insulin asp prt-insulin aspart 10 unit SUBCUT DAILY PRN 06/30/19 03/30/20 History [Novolog Mix 70-30FlexPen U-100] metformin 1,000 mg PO BID 06/30/19 03/30/20 History omeprazole 40 mg PO DAILY PRN 06/30/19 03/30/20 History zonisamide 400 mg PO HS 06/30/19 03/30/20 History acetaminophen [Tylenol Extra 500 mg PO BID PRN 03/02/20 03/30/20 History Strength] aspirin [Aspir-81] 81 mg PO QAM 03/02/20 03/30/20 History turmeric root extract 500 mg PO QAM 03/02/20 03/30/20 History acetaminophen 1,000 mg PO Q8 14 Days #84 tab 03/31/20 Rx aspirin 81 mg PO BID 30 Days #60 tab 03/31/20 Rx sennosides [Senokot] 17.2 mg PO HS #30 tab 03/31/20 Rx Patient History Medical History (Updated 04/02/20 @ 08:34 by Alicia Cain MD) Asthma Well controlled and stable Atrial flutter Carpal tunnel syndrome of right wrist Intermittent numbness and tingling DDD (degenerative disc disease), lumbar Diabetes mellitus, type 2 IDDM- Stable and controlled Diabetic neuropathy ankles, feet- results in difficulty with ambulation Fibromyalgia GERD (gastroesophageal reflux disease) DIET MANAGED Hiatal hernia History of blood transfusion s/p childbirth History of stroke 12/2017-SPONTANEOUSLY AT HOME-RESIDUAL EFFECTS MEMORY ISSUES/TAKES SEIZURE MED SINCE-NO SEIZURES- NO REPEAT EVENTS- FOLLOWS WITH NEURO Q 6 MONTHS Lymphedema Bilateral LEs Morbid obesity Osteoarthritis Plantar fasciitis B/L Pulmonary HTN RSVP cannot be properly estimated because of inadequate TR spectral doppler profile but probably greater than 60mmhg* per 12/2017 ECHO Rheumatoid arthritis Was following with rheum - no longer taking Plaquenil - no recent follow up Sleep apnea CPAP Surgical History History of colonoscopy History of surgery LEFT HEEL History of total knee replacement RIGHT Hx of cardiac cath 2006= NO STENTS Hx of section X1 Hx of cholecystectomy Status post total knee replacement, left Family History Brother Family history of diabetes mellitus Grandfather (Maternal) Family history of diabetes mellitus Grandfather (Paternal) No problems noted. Uncle Family hx of colon cancer Uncle Family hx of colon cancer Social History Preferred Language: [place] Communication Ability: Effective Child And Family Therapist Required: No Beliefs That Will Affect Care: None marital status: Current Living Situation: Family Current Living Situation Comment: DAUGHTER LIVES WITH PT Other Information That Helps Us Care for You: No Feels Safe at Home: Yes Safety Concerns: Feels Safe At This Time Smoking Status: Never smoker Do You Dip or Chew Tobacco: No ; Second Hand Exposure: Yes (FIRST ) ; Hx Alcohol Use: No Hx Substance Use: No Physical Exam Physical Exam: In general this is an obese white female lying supine in bed with complaints of mild palpitations. HEENT exam is negative. Neck is supple with full carotid upstrokes. There are no carotid bruits. Jugular venous pressure is flat at 90 degrees. There is no thyromegaly. Cardiovascular exam reveals an irregular rhythm with distant heart sounds. No obvious murmurs. Lungs are clear without rales, rhonchi or wheezes. Abdomen is soft nontender without bruits. Extremities reveal intact radial artery pulses bilaterally. Trace pretibial edema. Left knee is dressed. Results & Data ([facility]) Vital Signs (Past 12 Hours) Vital Signs Temp Pulse Pulse Resp BP BP Pulse Ox 04/02/20 13:03 141 H 118/75 04/02/20 11:50 144 H 126/81 04/02/20 10:09 36.8 C 139 H 18 121/70 92 04/02/20 07:00 37.1 C 132 H 20 122/67 94 Laboratory Results CBC notes hemoglobin 9.2, hematocrit 28.9, white count 10.9, and platelet count 194 1000. Electrolytes notice sodium of 133, potassium 3.4, chloride 102, bicarb 23, BUN 14, creatinine 0.72, and glucose of 150. Diagnostic Findings EKG notes atrial flutter with a rapid and variable ventricular response. There is a nonspecific ST abnormality. This is confirmed on the control inspector. PG Care Time/CCT Total # of Minutes Spent Total Time Spent with Patient: Total time spent is greater than 50% in coordination of care (as documented) at patient's floor/unit and/or counseling patient: Coding Level of Care Code 40002 Inpt Consult Level 4 Diagnoses Atrial flutter I48.92 Hypokalemia E87.6
[2020-04-02] MEDS ORDERED: METOPROLOL TARTRATE 1 MG/ML VIAL IV STA (14:05)
[2020-04-02] MEDS ORDERED: DIGOXIN 250 MCG in SYRINGE 9 ML IV STA (14:12)
--- NOTE | 2020-04-02 14:19 | XCELERA ---
[id number]
--- NOTE | 2020-04-02 14:37 | Electrocardiogram Report ---
Test Reason : Blood Pressure : / mmHG Vent. Rate : 121 BPM Atrial Rate : 264 BPM P-R Int : 000 ms QRS Dur : 088 ms QT Int : 390 ms P-R-T Axes : 000 007 209 degrees QTc Int : 553 ms Atrial flutter with variable A-V block Low voltage QRS Cannot rule out Inferior infarct , age undetermined Abnormal ECG No previous ECGs available Confirmed by Michi Schwartz ([id number]) on 04/02/2020 2:37:30 PM Referred By: Randy Verma Confirmed By:Michi Schwartz
[2020-04-02] MEDS: APIXABAN 5 MG TABLET PO SCH ×2 (14:54→22:22)
[2020-04-02] MEDS: OXYCODONE HCL IR 5 MG TAB (IMMEDIATE RELEASE) PO PRN ×2 (16:05→20:31)
[2020-04-02] MEDS: SENNA 8.6 MG TAB PO SCH (20:31)
[2020-04-02] MEDS: ZONISAMIDE PO SCH (20:33)
[2020-04-02] MEDS: ATORVASTATIN 40 MG TAB PO SCH (20:34)
[2020-04-02] MEDS ORDERED: DIGOXIN 250 MCG in SYRINGE 9 ML IV ONE (21:00)
[2020-04-03] MEDS: OXYCODONE HCL IR 5 MG TAB (IMMEDIATE RELEASE) PO PRN ×2 (00:32→10:12)
[2020-04-03] MEDS: dilTIAZem HCL 125 MG in DEXTROSE 5% 100 ML IV SCH ×2 (01:59→15:01)
[2020-04-03] MEDS: ACETAMINOPHEN 500 MG TAB PO SCH (06:11)
[2020-04-03] MEDS: MoRPHine SULFATE CR 15 MG TABCR PO SCH (06:11)
[2020-04-03 06:12] LABS: Basophils # (auto) 0.02 K/uL (0-0.2); Basophils % (auto) 0.2 %; Eosinophils # (auto) 0.23 K/uL (0-0.5); Eosinophils % (auto) 2.5 %; Hematocrit (blood only) 30.3 % (37-47); Hemoglobin 9.9 g/dL (12.0-16.0); Immature Granulocytes # (auto) 0.03 K/uL (0.00-0.02); Immature Granulocytes % (auto) 0.3 %; Lymphocytes # (auto) 2.98 K/uL (1.2-3.4); Mean Corpuscular Hemoglobin 28.7 pg (25-34); Mean Corpuscular Hgb Conc 32.7 g/dL (32-36); Mean Corpuscular Volume 87.8 fL (80-100); Mean Platelet Volume 9.9 fL (7.4-10.4); Monocytes # (auto) 0.71 K/uL (0.11-0.59); Monocytes % (auto) 7.6 %; Neutrophils # (auto) 5.35 K/uL (1.4-6.5); Neutrophils % (auto) 57.4 %; Platelet Count 189 K/uL (130-400); RDW Coefficient of Variation 14.3 % (11.5-14.5); RDW Standard Deviation 45.7 fL (36.4-46.3); Red Blood Count 3.45 M/uL (4.2-5.4); White Blood Count 9.32 K/uL (4.8-10.8)
[2020-04-03 06:36] LABS: BUN Creatinine Ratio 16.2 (10-20); Calcium 8.5 mg/dl (8.5-10.1); Creatinine Clr Calc Pharmacy 122.3 ml/min; Est GFR (Non-African American) 94.9; Magnesium 1.5 mg/dl (1.8-2.4); Potassium 3.9 mmol/L (3.5-5.1)
[2020-04-03] MEDS ORDERED: POTASSIUM CHLORIDE 20 MEQ TABCR PO STA (07:56)
[2020-04-03] MEDS: INSULIN ASPART 100 UNITS/ML 3 ML PEN SC SCH ×2 (07:58→11:59)
[2020-04-03] MEDS ORDERED: METOPROLOL TARTRATE 50 MG TAB PO SCH (09:00)
[2020-04-03] MEDS: CHOLECALCIFEROL 1,000 UNITS 25 MCG TAB PO SCH (10:06)
[2020-04-03] MEDS: FERROUS GLUCONATE 324 MG TAB PO SCH (10:07)
[2020-04-03] MEDS: GABAPENTIN 100 MG CAP PO SCH (10:07)
[2020-04-03] MEDS: MULTIVITAMIN TAB PO SCH (10:08)
[2020-04-03] MEDS: APIXABAN 5 MG TABLET PO SCH (10:08)
[2020-04-03] MEDS: DOCUSATE SODIUM 100 MG CAP PO SCH (10:08)
[2020-04-03] MEDS: MAGNESIUM SULFATE / D5W 1 GM/100 ML BAG IV SCH ×2 (10:45→12:51)
--- NOTE | 2020-04-03 11:04 | Cardiology Progress Note ---
Date of Service April 03, 2020 Assessment & Plan (1) Atrial flutter: -converted to sinus rhythm this morning. -would discontinue intravenous diltiazem and digoxin. -would continue metoprolol tartrate at 50 mg b.i.d. -agree with Eliquis 5 mg b.i.d. -stable for hospital discharge. (2) Hypokalemia: -received supplementation. (3) Hypomagnesemia: -receiving intravenous supplementation. Admission and Anticipated Discharge Date Admission Date: March 30, 2020 Subjective The patient is resting comfortably in bed without complaints of chest pain, dyspnea, or palpitations. She is anxious for hospital discharge. Physical Exam Physical Exam: In general this is an obese white female lying supine in bed with complaints of mild palpitations. HEENT exam is negative. Neck is supple with full carotid upstrokes. There are no carotid bruits. Jugular venous pressure is flat at 90 degrees. There is no thyromegaly. Cardiovascular exam reveals a regular rhythm with distant heart sounds. No obvious murmurs. Lungs are clear without rales, rhonchi or wheezes. Abdomen is soft and nontender without bruits. Extremities reveal intact radial artery pulses bilaterally. Tr carmencita pretibial edema. Left knee is dressed. Results & Data ([facility]) Vital Signs (Past 12 Hours) Vital Signs Temp Pulse Pulse Pulse Resp BP BP 04/03/20 07:44 36.5 C 105 H 16 115/66 04/03/20 04:00 36.7 C 131 H 19 109/76 04/02/20 23:59 106 H 04/02/20 23:51 36.3 C L 138 H 18 119/64 Pulse Ox 04/03/20 07:44 93 04/03/20 04:00 92 04/02/20 23:59 04/02/20 23:51 90 Laboratory Results The electrolytes note a sodium of 135, potassium 3.9, chloride 103, bicarb 24, BUN 11, creatinine 0.67, glucose of 158. Magnesium level is low at 1.5. Diagnostic Findings alarm security or surveillance monitor notes sinus rhythm. She converted from atrial flutter approximately 8:30 a.m. today. PG Care Time/CCT Total # of Minutes Spent Total Time Spent with Patient: Total time spent is greater than 50% in coordination of care (as documented) at patient's floor/unit and/or counseling patient: Coding Level of Care Code 07085 Subseq Hosp Care Lvl 3 Diagnoses Atrial flutter I48.92 Hypokalemia E87.6 Hypomagnesemia E83.42
--- NOTE | 2020-04-03 11:14 | Orthopedic Progress Note ---
Date of Service April 03, 2020 Assessment & Plan (1) History of total left knee replacement: POD #4 s/p Left TKA New onset atrial flutter-converted to normal sinus rhythm this morning. Anemia - Hgb 9.9 today Hypokalemia/hyponatremia -hypokalemia corrected. Sodium 135 this morning. pt/ot- progressing dvt proph with YOLANDA/SCD/ASA DC planning-per cardiology patient stable for discharge to home. I discussed the case with Dr. Cain and we will plan for discharge today. Pt is planning on following up with Dr. Ness in the near future. She will also follow-up with her primary care physician as well. Admission and Anticipated Discharge Date Admission Date: March 30, 2020 Subjective Postop day 4 Patient lying in bed awake and alert. No complaints this morning. She states that she had gotten up with physical therapy this morning and it felt good to get out of bed. He states she had some discomfort but it went well. She states that Dr. Schwartz was in this morning and said that she is okay to go home. She denies any shortness of breath, chest pain, lightheadedness. Pain is controlled at this time. Physical Exam Physical Exam: Prevena dressing is clean, dry, and intact. Functioning properly. No erythema around the dressing. Calves soft and nontender. Neurovascular intact. Toes are mobile. Results & Data ([facility]) Vital Signs (Past 12 Hours) Vital Signs Temp Pulse Pulse Pulse Resp BP BP 04/03/20 07:44 36.5 C 105 H 16 115/66 04/03/20 04:00 36.7 C 131 H 19 109/76 04/02/20 23:59 106 H 04/02/20 23:51 36.3 C L 138 H 18 119/64 Pulse Ox 04/03/20 07:44 93 04/03/20 04:00 92 04/02/20 23:59 04/02/20 23:51 90 Laboratory Results Laboratory Results WBC 9.32 K/uL (4.8-10.8) 04/03/20 05:57 RBC 3.45 M/uL (4.2-5.4) L 04/03/20 05:57 Hgb 9.9 g/dL (12.0-16.0) L 04/03/20 05:57 Hct 30.3 % (37-47) L 04/03/20 05:57 MCV 87.8 fL (80-100) 04/03/20 05:57 MCH 28.7 pg (25-34) 04/03/20 05:57 MCHC 32.7 g/dL (32-36) 04/03/20 05:57 RDW Std Deviation 45.7 fL (36.4-46.3) 04/03/20 05:57 RDW Coeff of Yue 14.3 % (11.5-14.5) 04/03/20 05:57 Plt Count 189 K/uL (130-400) 04/03/20 05:57 MPV 9.9 fL (7.4-10.4) 04/03/20 05:57 Immature Gran % (Auto) 0.3 % 04/03/20 05:57 Neut % (Auto) 57.4 % 04/03/20 05:57 Lymph % (Auto) 32.0 % 04/03/20 05:57 Sumner % (Auto) 7.6 % 04/03/20 05:57 Eos % (Auto) 2.5 % 04/03/20 05:57 Baso % (Auto) 0.2 % 04/03/20 05:57 Neut # (Auto) 5.35 K/uL (1.4-6.5) 04/03/20 05:57 Lymph # (Auto) 2.98 K/uL (1.2-3.4) 04/03/20 05:57 Sumner # (Auto) 0.71 K/uL (0.11-0.59) H 04/03/20 05:57 Eos # (Auto) 0.23 K/uL (0-0.5) 04/03/20 05:57 Baso # (Auto) 0.02 K/uL (0-0.2) 04/03/20 05:57 Immature Gran # (Auto) 0.03 K/uL (0.00-0.02) H 04/03/20 05:57 PT 10.4 Seconds (9.0-12.0) 03/07/20 12:28 INR 1.0 (0.9-1.1) 03/07/20 12:28 APTT 25.2 Seconds (21.0-31.0) 03/07/20 12:28 PTT Ratio 0.9 03/07/20 12:28 Sodium 135 mmol/L (136-145) L 04/03/20 05:57 Potassium 3.9 mmol/L (3.5-5.1) 04/03/20 05:57 Chloride 103 mmol/L (98-107) 04/03/20 05:57 Carbon Dioxide 24 mmol/L (21-32) 04/03/20 05:57 Anion Gap 8.0 (3-11) 04/03/20 05:57 BUN 11 mg/dl (7-18) 04/03/20 05:57 Creatinine 0.67 mg/dl (0.6-1.2) 04/03/20 05:57 Est Cr Clr Drug Dosing 122.3 ml/min 04/03/20 05:57 Est GFR ( Amer) 110.0 04/03/20 05:57 Est GFR (Non-Af Amer) 94.9 04/03/20 05:57 BUN/Creatinine Ratio 16.2 (10-20) 04/03/20 05:57 Glucose 158 mg/dl (70-99) H 04/03/20 05:57 POC Glucose 211 mg/dl (70-99) H 04/03/20 07:36 Estimat Average Glucose 160 mg/dl 03/07/20 12:28 Hemoglobin A1c 7.2 % (4.5-5.6) H 03/07/20 12:28 Calcium 8.5 mg/dl (8.5-10.1) 04/03/20 05:57 Magnesium 1.5 mg/dl (1.8-2.4) L 04/03/20 05:57 Albumin 3.8 gm/dl (3.4-5.0) 03/07/20 12:28 Hepatitis C Ab Screen Neg (Neg) 03/31/20 05:59 Blood Type O Negative 03/07/20 12:28 Antibody Screen NEGATIVE 03/07/20 12:28
--- NOTE | 2020-04-03 12:01 | Hospitalist Progress Note ---
Date of Service April 03, 2020 Assessment & Plan (1) Atrial flutter: With a history of frequent palpitations in the past very similar to what she felt here while in rapid atrial flutter. Most likely has had paroxysmal flutter for couple of years. With a history of CVA in 2018 on baby aspirin daily Also with a history of diabetes, she is at high risk for stroke. Fortunately, her blood pressure is stable and she is asymptomatic other than palpitations while in Atrial flutter Discussed anticoagulation with her and she is agreeable to Eliquis as opposed to warfarin or no anticoagulation. Discussed that with her morbid obesity, there is a risk that Eliquis may not be as effective as not well studied in the morbidly obese, but pt adamantly declines coumadin. COnverted spontaneously to NSR with rates in the 80s after 24 hours of rapid a- flutter in the 100s-140s despite max dose of IV diltiazem gtt and IV digoxin loading. ECHO normal -Consult cardiology appreciated --dc ASA from home -start Eliquis 5mg po bid-bleeding precautions given -replaced Magnesium and potassium -start metoprolol tartrate 50mg po bid -no further digoxin to be given at home -f/u with Cardiology as outpt within 2 weeks -Encourage CPAP compliance (2) Hyponatremia: Sodium mildly low at 133, likely mildly dehydrated--> given IVFs and improved (3) Hypokalemia: Potassium mildly low at 3.4, with rapid atrial flutter as above replaced and improved (4) History of total left knee replacement: Postop day #2 status post left TKA Postop management as per orthopedics stable for dc from Ortho perspective Eliquis will also be for DVT prophylaxis (5) Diabetes mellitus, type 2: With some hyperglycemia here which is now improved -continue metformin at home Hemoglobin A1c was 6.9% as per outpatient medical clearance notes (6) History of stroke: As mentioned above, 2018 with residual effects of mild expressive aphasia dc aspirin 81 mg and strat ELqiuis as above -Continue statin (7) Sleep apnea: Encourage CPAP compliance (8) Pulmonary HTN: Mentioned have a RSVP of 60 -ECHO as above normal -Likely basis of OC and morbid obesity Lasix daily at home (9) Morbid obesity: BMI 49.3 -Encouraged weight loss (10) Lymphedema: Uses Lasix as needed None needed right now (11) GERD (gastroesophageal reflux disease): Takes PPI. (12) Fibromyalgia: Noted -Continue gabapentin (13) Acute blood loss anemia: Hemoglobin with slight loss down to 9 Hemodynamically stable (14) Rheumatoid arthritis: Seronegative, no longer on Plaquenil (15) Asthma: No acute issues Continue albuterol as needed (16) Constipation: With a history of no bowel movement x10 days after her last knee surgery Did have a small bowel movement here -Continue aggressive bowel regimen at home (17) Hypomagnesemia: replace with IV magnesium prior to discharge (18) DVT prophylaxis: Lisset Gallardo Disposition-stable for discharge from a medical standpoint, discussed with Cardiology and Orthopedics Admission and Anticipated Discharge Date Admission Date: March 30, 2020 Anticipated date of discharge: 04/03/20 Subjective Pt converted to NSR this AM after being in atrial flutter all day and night in rates 100-140s. She felt when she converted back and denies any further palpitations. SHe never had any lightheadedness or chest pain , no SOB, no lightheadedness. SHe worked with PT today and Ortho feels she is ready to go home. I discussed her care with both Ortho PA and Cardiology Review of Systems Review of Systems: All systems reviewed & are unremarkable except as noted in HPI & below Physical Exam Constitutional: WD/WN, vitals as above + morbidly obese Eyes: + anicteric sclerae Neck: trachea midline, no thyromegaly Respiratory: normal respiratory effort, lungs clear to auscultation Cardiovascular: RRR, no murmur, no edema Vessels: dorsalis pedis pulses present Extremities: + edema (Trace edema in the legs bilaterally) Chest (Breasts): Chest: normal inspection of chest Gastrointestinal (Abdomen): normal bowel sounds, soft, nontender, no hepatosplenomegaly Musculoskeletal: Extremities: + extremities abnormal to inspection (Left knee with wound VAC in place and ice pack with minimal edema), no cyanosis and no clubbing Skin: no rashes, warm and dry Neurologic: moves all extremities and awake; no focal motor deficits Psychiatric: A+Ox3, euthymic affect Lymphatic: no lymphedema Results & Data Results & Data ([facility]) Vital Signs (Past 12 Hours) Vital Signs Temp Pulse Pulse Pulse Resp BP BP 04/03/20 11:38 36.5 C 63 18 113/73 04/03/20 07:44 36.5 C 105 H 16 115/66 04/03/20 04:00 36.7 C 131 H 19 109/76 04/02/20 23:59 106 H 04/02/20 23:51 36.3 C L 138 H 18 119/64 Pulse Ox 04/03/20 11:38 92 04/03/20 07:44 93 04/03/20 04:00 92 04/02/20 23:59 04/02/20 23:51 90 Laboratory Results 04/03/20 04/03/20 04/03/20 Range/Units 11:45 07:36 05:57 WBC (4.8-10.8) K/uL RBC (4.2-5.4) M/uL Hgb (12.0-16.0) g/dL Hct (37-47) % MCV (80-100) fL MCH (25-34) pg MCHC (32-36) g/dL RDW Std Deviation (36.4-46.3) fL RDW Coeff of Yue (11.5-14.5) % Plt Count (130-400) K/uL MPV (7.4-10.4) fL Immature Gran % (Auto) % Neut % (Auto) % Lymph % (Auto) % Hutchinson % (Auto) % Eos % (Auto) % Baso % (Auto) % Neut # (Auto) (1.4-6.5) K/uL Lymph # (Auto) (1.2-3.4) K/uL Hutchinson # (Auto) (0.11-0.59) K/uL Eos # (Auto) (0-0.5) K/uL Baso # (Auto) (0-0.2) K/uL Immature Gran # (Auto) (0.00-0.02) K/uL Sodium 135 L (136-145) mmol/L Potassium 3.9 (3.5-5.1) mmol/L Chloride 103 (98-107) mmol/L Carbon Dioxide 24 (21-32) mmol/L Anion Gap 8.0 (3-11) BUN 11 (7-18) mg/dl Creatinine 0.67 (0.6-1.2) mg/dl Est Cr Clr Drug Dosing 122.3 ml/min Est GFR ( Amer) 110.0 Est GFR (Non-Af Amer) 94.9 BUN/Creatinine Ratio 16.2 (10-20) Glucose 158 H (70-99) mg/dl POC Glucose 222 H 211 H (70-99) mg/dl Calcium 8.5 (8.5-10.1) mg/dl Magnesium 1.5 L (1.8-2.4) mg/dl 04/03/20 04/02/20 04/02/20 Range/Units 05:57 20:11 16:25 WBC 9.32 (4.8-10.8) K/uL RBC 3.45 L (4.2-5.4) M/uL Hgb 9.9 L (12.0-16.0) g/dL Hct 30.3 L (37-47) % MCV 87.8 (80-100) fL MCH 28.7 (25-34) pg MCHC 32.7 (32-36) g/dL RDW Std Deviation 45.7 (36.4-46.3) fL RDW Coeff of Yue 14.3 (11.5-14.5) % Plt Count 189 (130-400) K/uL MPV 9.9 (7.4-10.4) fL Immature Gran % (Auto) 0.3 % Neut % (Auto) 57.4 % Lymph % (Auto) 32.0 % Hutchinson % (Auto) 7.6 % Eos % (Auto) 2.5 % Baso % (Auto) 0.2 % Neut # (Auto) 5.35 (1.4-6.5) K/uL Lymph # (Auto) 2.98 (1.2-3.4) K/uL Hutchinson # (Auto) 0.71 H (0.11-0.59) K/uL Eos # (Auto) 0.23 (0-0.5) K/uL Baso # (Auto) 0.02 (0-0.2) K/uL Immature Gran # (Auto) 0.03 H (0.00-0.02) K/uL Sodium (136-145) mmol/L Potassium (3.5-5.1) mmol/L Chloride (98-107) mmol/L Carbon Dioxide (21-32) mmol/L Anion Gap (3-11) BUN (7-18) mg/dl Creatinine (0.6-1.2) mg/dl Est Cr Clr Drug Dosing ml/min Est GFR ( Amer) Est GFR (Non-Af Amer) BUN/Creatinine Ratio (10-20) Glucose (70-99) mg/dl POC Glucose 137 H 172 H (70-99) mg/dl Calcium (8.5-10.1) mg/dl Magnesium (1.8-2.4) mg/dl PG Care Time/CCT Total # of Minutes Spent Total Time Spent with Patient: Total time spent is greater than 50% in coordination of care (as documented) at patient's floor/unit and/or counseling patient: Coding Level of Care Code 70318 Subseq Hosp Care Lvl 3 Diagnoses Atrial flutter I48.92 Hyponatremia E87.1 Hypokalemia E87.6 History of total left knee replacement Z96.652 Diabetes mellitus, type 2 E11.9 History of stroke Z86.73 Sleep apnea G47.30 Pulmonary HTN I27.20 Morbid obesity E66.01 Lymphedema I89.0 GERD (gastroesophageal reflux disease) K21.9 Fibromyalgia M79.7 Acute blood loss anemia D62 Rheumatoid arthritis M06.9 Asthma J45.909 Constipation K59.00 Hypomagnesemia E83.42 DVT prophylaxis Z29.9
[2020-04-03] MEDS ORDERED: APIXABAN 5 MG TABLET PO SCH ×2 (12:30→21:00)
[2020-04-03] MEDS ORDERED: DIGOXIN 125 MCG in SYRINGE 9.5 ML IV SCH (16:00)
--- NOTE | 2020-04-03 23:54 | Discharge Summary (DS) ---
DISCHARGE DIAGNOSIS: Degenerative joint disease, left knee. SECONDARY DIAGNOSES: New onset atrial flutter during this visit, asthma, degenerative disc disease, diabetes mellitus type 2, diabetic neuropathy, fibromyalgia, gastroesophageal reflux disease, heart palpitations in the past, hiatal hernia, history of CVA, morbid obesity, osteoarthritis, plantar fasciitis, pulmonary hypertension, rheumatoid arthritis, sleep apnea with use of CPAP. CONSULTS: Dr. Alicia Cain and Dr. Michi Schwartz. COMPLICATIONS: New onset atrial flutter. PROCEDURES: Left total knee arthroplasty performed by Dr. Verma on 03/30/2020. BRIEF HISTORY: As dictated in history and physical. HOSPITAL SUMMARY: The patient was admitted on the above-noted date and had the above-noted surgery performed, which she tolerated well. On her first postoperative day, she denied any shortness of breath, chest pain or lightheadedness. She had no nausea or vomiting. Vital signs were stable. She was afebrile. Hemoglobin was 10.2 and her dressings were clean, dry and intact. Calves were soft, nontender, neurovascularly intact. Toes were mobile. She was started on PT and OT protocol and continued on DVT prophylaxis and pain management. By her second postoperative day, she was lying in bed that afternoon and was somewhat tearful due to pain control. She stated that she was waiting for some pain medication to come and said that her PT was somewhat difficult due to her pain control. Plans were to add medications to her pain control regimen including Toradol and MS Contin. She denied any shortness of breath or chest pain and denied any lightheadedness. She was currently painful in the knee at that time. Vital signs were stable and she was afebrile. Her Prevena dressing was clean, dry and intact. She had no erythema noted around the dressing over the knee. Calves were soft, nontender. Neurovascularly was intact and toes were mobile. She was continued on PT and OT protocols. Medication additions as noted and plans were for discharge to home when stable and pain was controlled. Her pain control was somewhat better that afternoon, but she was still somewhat painful and was unsure if she wanted to go home. Part of the addition was then added at that time to her pain regimen and she was continued on her protocol. I was called early in the morning of her third postoperative day per nursing staff. It was noted that her heart rate had increased to 132 and the patient states that she had felt some fluttering in her chest. Stat EKG was ordered as well as a CBC and I consulted Dr. Cain and spoke with her about the patient. EKG was showing atrial flutter and Dr. Cain was examining the patient at the time of my arrival. Her dressing was intact and functioning. She had no drainage, bruising was noted around the drain sites. Calves were soft, nontender, neurovascularly intact. Toes were mobile. Dr. Cain did her examination which I would refer you to her consult. The patient was then transferred down to the telemetry unit and Dr. Schwartz was consulted and they continued to monitor the patient's heart rhythm and treated it accordingly. Please see Dr. Schwartz's cardiology consultation. By the morning of 04/03/2020, the patient was doing well and lying in bed, awake and alert. She had no complaints that morning. She had converted to normal sinus rhythm. She stated that she had gotten up with physical therapy, which she felt good to be out of bed. She had some discomfort, but it went well. Her dressing was clean, dry and intact, functioning properly. No erythema was noted. Calves were soft, nontender, neurovascularly intact. Toes were mobile. Vital signs showed the patient being afebrile and pulse 105, BP 115/66, respirations 16, hemoglobin was 9.9. She had noted hypokalemia, which was repleted and also hyponatremia which was [address] Schwartz was in to see the patient this morning and noted the conversion to normal sinus rhythm and it was felt that the patient could be discharged to home. I have spoken to Dr. Cain at that time about her discharge and went over certain medications that the patient would be remaining on at this point in time. She was otherwise progressing well and remaining stable and it was felt she could be discharged to home with home health services. For further review, please see chart. LABORATORY AND X-RAY DATA: As per chart. DISCHARGE INSTRUCTIONS: The patient was discharged to home in satisfactory condition on 04/03/2020. DIET: Diabetic. ACTIVITY: Weightbearing as tolerated on the left lower extremity with walker. Follow [facility] instruction sheets and special care instructions as noted. Follow up with Dr. Verma in 2 weeks. Additional instructions were placed by Dr. Tussey for followup with Dr. Schwartz within 2 weeks, as noted follow up with Dr. Verma in 2 weeks for wound check. DISCHARGE MEDICATIONS: Acetaminophen 1000 mg p.o. q. 8 hours, Eliquis 5 mg p.o. b.i.d., metoprolol 50 mg p.o. b.i.d., oxycodone 5 mg p.o. q. 4 hours p.r.n., sennosides 17.2 mg p.o. at bedtime. Resume home meds as listed and stop taking previous acetaminophen dosage and previous aspirin dosage.
== END 2020-04-03 15:12 | disposition home health service (06) | DRG 470 ==
LOC: ASU 06:10 → 3N 10:51 → 2S 04-02 09:58